=== PATIENT | female | born 1950 | race Caucasian/White ===

== ENCOUNTER 2019-12-04 08:29 | Outpatient (CLI) | payer MEDICARE, SELFPAY ==
--- NOTE | ~2019-12-04 | US_ITS ---
EXAMINATION: US right upper quadrant EXAM DATE: 12/04/2019 09:15 INDICATION: Right upper quadrant pain. TECHNIQUE: Multiple grayscale and Doppler images of the abdomen right upper quadrant were obtained (b y a technologist who performed the scan) and subsequently reviewed. There is no prior study for jose m porter. FINDINGS: The pancreatic head and body are normal in appearance. The pancreatic tail is not visualized. The l iver has normal echogenicity and contour. There are no focal liver lesions identified. There is no evidence of intrahepatic biliary duct dilation. Portal venous flow was seen in the hepatopedal, nor mal direction and has normal Doppler waveform. No right-sided hydronephrosis. Common bile duct measures 5 mm, which is normal. The gallbladder fossa is unremarkable. IMPRESSION: 1. Unremarkable abdominal ultrasound exam. Reviewed, dictated and finalized at location A. 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
== END 2019-12-04 08:30 | disposition home or self-care (01) ==
PROVIDERS: PCP Internal Medicine; Visit Provider Nurse Practitioner
DX: R10.11 Right upper quadrant pain (principal)
CPT/HCPCS: 76705

== ENCOUNTER 2019-12-13 09:07 | Outpatient (CLI) | payer MEDICARE, SELFPAY ==
--- NOTE | ~2019-12-13 | DEXA_ITS ---
Bone Density Report Name: Ro Echavarria Age: 69 Sex: Female Ethnicity: White Date of : 1950 Indication: postmenopausal; parental hip fracture; height loss; asthma or emphysema; hysterectomy; rheumatoid arthritis; Referring Provider: Casandra Reich Study: Bone densitometry was performed. Exam Date: December 13, 2019 Accession number: [id number] Bone Density: Region BMD T-score Z-score Classification AP Spine (L1-L4) 0.891 -1.4 0.7 Osteopenia Femoral Neck (Left) 0.566 -2.5 -0.8 Osteoporosis Total Hip (Left) 0.739 -1.7 -0.2 Osteopenia Total Hip Bilateral Avg 0.760 -1.5 0.0 Osteopenia Femoral Neck (Right) 0.560 -2.6 -0.8 Osteoporosis Total Hip (Right) 0.779 -1.3 0.2 Osteopenia World Health Organization criteria for BMD impression classify patients as: Normal (T-score at or above -1.0), Osteopenia (T-score between -1.0 and -2.5), or Osteoporosis (T-score at or below -2.5). 10-year Fracture Risk: FRAX not reported because: Some T-score for Spine Total or Hip Total or Femoral Neck at or below -2.5 Clinical Information Provided by Patient: Parent has had a hip fracture Smokes Has rheumatoid arthritis Has the following medical conditions: Asthma or Emphysema, Hysterectomy Patient maximum height was 64 Menopause Age: 25 No regular weight bearing exercise Does not regularly consume dairy products Drinks caffeinated beverages Onset of menses at age 12 Number of children 4 Impression: The patient has osteoporosis, based on the Right Femoral Neck T-score. The patient has risk factors, including: parental hip fracture, smoking. Discussion: INCREASED RISK OF FRACTURE. BONE DENSITY IS UNDESIRABLY LOW AT ONE OR MORE SKELETAL SITES, CONSISTENT WITH POSTMENOPAUSAL OSTEOPOROSIS. This patient's lowest T-score meets the World Health Organization's (WHO) criteria for osteoporosis at one or more sites (T-score -2.5 or below). In untreated patients, the risk of osteoporotic fracture increases approximately two-fold for each 1.0 SD decrease in T-score. Low bone density is not the only risk factor for fracture; also consider factors such as patient's age, frailty or poor health, risk of falling, risk of injury, previous osteoporotic fracture, family history of osteoporosis, cigarette smoking, low body weight, etc. Not everyone with low bone mineral density has osteoporosis; osteomalacia and other metabolic bone disorders should also be considered. Patients who have osteoporosis should be evaluated for specific diseases and conditions (secondary causes) that may cause or contribute to bone loss. The [place] [employer] Endocrinologists (AACE) and National Osteoporosis Foundation (NOF) recommend pharmacologic intervention for all postmenopausal women whose T-score is in this range. The patient should follow a healthful
--- NOTE | ~2019-12-13 | MM_ITS ---
EXAMINATION: MM screening dandre BI w alisha HISTORY: Screening mammogram TECHNIQUE: Craniocaudal and mediolateral oblique 3-D tomosynthesis images were obtained and synthetic 2-D images were generated. CAD analysis was submitted and interpreted. COMPARISON: 04/03/2014 BREAST PARENCHYMAL COMPOSITION: There are scattered areas of fibroglandular density. FINDINGS: There is no evidence of suspicious mass, calcification, or architectural distortion to sugg est malignancy in either breast. There has been no suspicious interval change. IMPRESSION: 1. No mammographic evidence of malignancy. 2. Recommend routine screening mammography in one year. BI-RADS Category 1: Negative Reviewed, dictated and finalized at location A. 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
== END 2019-12-13 09:08 | disposition home or self-care (01) ==
PROVIDERS: PCP Internal Medicine; Visit Provider Nurse Practitioner
DX: Z12.31 Encounter for screening mammogram for malignant neoplasm of breast (principal); Z78.0 Asymptomatic menopausal state; M85.89 Other specified disorders of bone density and structure, multiple sites; M81.0 Age-related osteoporosis without current pathological fracture
CPT/HCPCS: 77063; 77067; 77080

== ENCOUNTER 2020-03-22 00:33 | Outpatient (CLI) | payer MEDICARE, SELFPAY ==
[2020-03-22 16:40] LABS: SARS-CoV-2 RNA PCR Negative
== END 2020-03-22 00:34 | disposition home or self-care (01) ==
LOC: ANHCOVIDDT 00:33
PROVIDERS: PCP Internal Medicine; Visit Provider Internal Medicine Gastroenterology
DX: Z01.812 Encounter for preprocedural laboratory examination (principal); Z20.828 Contact with and (suspected) exposure to other viral communicable diseases
CPT/HCPCS: 87635; C9803; U0003

== ENCOUNTER 2020-03-24 03:31 | Day surgery (SDC) | payer MEDICARE, SELFPAY ==
[2020-03-21 15:49] VITALS: BMI 26.4
[2020-03-24 07:30] VITALS: BP 139/53; PULSE 100; RESP 18; TEMP 36.3; O2SAT 94; BMI 29.2
[2020-03-24 07:56] LABS: Glucose Point of Care 114 (65-105)
--- NOTE | 2020-03-24 07:58 | PM.HPGS ---
History of Present Illness History of Present Illness Consent: Risks, benefits, and alternatives have been discussed and questions answered. Patient agrees to proceed with procedure. Chief complaint: Dysphagia Narrative: Ro Echavarria is a 70 year old W female referred for gastroscopy for evaluation of heartburn indigestion and difficulty swallowing liquids and solids she points to the cervical region. She states that time she will have difficulty swallowing her saliva. Patient was evaluated for this 4 years ago in [place] with an EGD and also had a colonoscopy at that time. I do not have the reports. Patient states they found a hiatal hernia. Patient is a chronic smoker at least a 50 year pack history. Denies alcohol. She states she has not been evaluated by ENT. Patient has lost 50 lb but this had been attributed to her new diagnosis of diabetes. [facility] Past Medical History Medical History Asthma Bronchitis Chronic back pain COPD (chronic obstructive pulmonary disease) Depression Diabetes Diverticulitis Emphysema of lung Fibromyalgia H/O seasonal allergies Herniated disc HTN (hypertension) Hypercholesterolemia Left carpal tunnel syndrome Migraine On home O2 3L Pain in left wrist Rheumatoid arthritis Right carpal tunnel syndrome Skin disorder Surgical History Surgical History History of appendectomy History of cervical spinal arthrodesis History of cholecystectomy History of hysterectomy Hx of breast reduction, elective Bilateral Family History Family History Sibling Family history of Alzheimer's disease Hypertension Mother Family history of osteoarthritis Father Family history of coronary artery disease Sibling Kidney disease Other Family history of cardiovascular disease Social History Social History Smoking packs per day: 0.5 Smoking cigarettes per day: 10.0 Smoking status: Current every day smoker Smoking end date: 10/17/13 Alcohol intake: never Gender identity (if verbalized by the patient): Female Meds Home Medications and Allergies Home Medications Medication Instructions Recorded Confirmed Type blood-glucose meter #1 each 09/28/19 03/24/20 Rx albuterol sulfate 2.5 mg INHALATION Q4-6H PRN 11/20/19 03/24/20 History albuterol sulfate 90 mcg/actuation 2 puff INHALATION Q4-6H PRN gm 11/20/19 03/24/20 History aerosol inhaler pen needle, diabetic 32 gauge x #100 each 12/18/19 03/24/20 Rx 5/32 alendronate 70 mg tablet 70 mg PO WEEKLY #12 tablet 12/20/19 03/24/20 Rx blood sugar diagnostic #100 each 01/11/20 03/24/20 Rx lisinopril 10 mg tablet 10 mg PO DAILY #90 tablet 02/21/20 03/24/20 Rx cholecalciferol (vitamin D3) 1,250 1,250 mcg PO WEEKLY #8 tablet 03/04/20 03/24/20 Rx mcg (50,000 unit) tablet cholecalciferol (vitamin D3) 50 50 mcg PO DAILY #90 cap 03/04/20 03/24/20 Rx mcg (2,000 unit) capsule fluticasone propionate 50 2 spray NASAL DAILY #11.1 ml 03/04/20 03/24/20 Rx mcg/actuation nasal spray,suspension atorvastatin 10 mg tablet 10 mg PO DAILY #90 tablet 03/17/20 03/24/20 Rx tiotropium bromide 2.5 2 puff INHALATION DAILY #4 gm 03/17/20 03/24/20 Rx mcg/actuation mist for inhalation metformin 1,000 mg tablet 1,000 mg PO BID #180 tablet 03/18/20 03/24/20 Rx venlafaxine 150 mg 150 mg PO DAILY #90 cap 03/18/20 03/24/20 Rx capsule,extended release 24 hr Allergies Allergy/AdvReac Type Severity Reaction Status Date / Time No Known Allergies Allergy Verified 03/24/20 07:38 Vital Signs Vital Signs - 24 hr 03/24/20 07:30 Temperature 36.3 C L Pulse Rate 100 Respiratory Rate 18 Blood Pressure 139/53 L Pulse Oximetry 94 Exam Const: Orientation/consciousness: patient oriented x3 Resp: A
[2020-03-24] MEDS: LACTATED RINGERS 1,000 ML 150 ML IV CONT (08:08)
--- NOTE | 2020-03-24 08:22 | WPDANESEPPF ---
Anes - Initial Pre Proc Eval Procedure: Operation Date: 03/24/20 09:00 Proposed Procedures p Esophagogastroduodenoscopy - Shahram Scott MD Date/Time: 03/24/20 08:22 Surgeon: Sahhram Scott MD Pre Op Diagnosis: Dysphagia Patient Data Age: 70 Gender: F Height: 5 ft 3 in Weight: 75 kg Last Vital Signs Temp 97.4 F L 03/24/20 07:30 Pulse 100 03/24/20 07:30 Resp 18 03/24/20 07:30 BP 139/53 L 03/24/20 07:30 Pulse Ox 94 03/24/20 07:30 Allergies Allergy/AdvReac Type Severity Reaction Status Date / Time No Known Allergies Allergy Verified 03/24/20 07:38 Home Medications Medication Instructions Recorded Confirmed Type blood-glucose meter #1 each 09/28/19 03/24/20 Rx albuterol sulfate 2.5 mg INHALATION Q4-6H PRN 11/20/19 03/24/20 History albuterol sulfate 90 mcg/actuation 2 puff INHALATION Q4-6H PRN gm 11/20/19 03/24/20 History aerosol inhaler pen needle, diabetic 32 gauge x #100 each 12/18/19 03/24/20 Rx / alendronate 70 mg tablet 70 mg PO WEEKLY #12 tablet 12/20/19 03/24/20 Rx blood sugar diagnostic #100 each 01/11/20 03/24/20 Rx lisinopril 10 mg tablet 10 mg PO DAILY #90 tablet 02/21/20 03/24/20 Rx cholecalciferol (vitamin D3) 1,250 1,250 mcg PO WEEKLY #8 tablet 03/04/20 03/24/20 Rx mcg (50,000 unit) tablet cholecalciferol (vitamin D3) 50 50 mcg PO DAILY #90 cap 03/04/20 03/24/20 Rx mcg (2,000 unit) capsule fluticasone propionate 50 2 spray NASAL DAILY #11.1 ml 03/04/20 03/24/20 Rx mcg/actuation nasal spray,suspension atorvastatin 10 mg tablet 10 mg PO DAILY #90 tablet 03/17/20 03/24/20 Rx tiotropium bromide 2.5 2 puff INHALATION DAILY #4 gm 03/17/20 03/24/20 Rx mcg/actuation mist for inhalation metformin 1,000 mg tablet 1,000 mg PO BID #180 tablet 03/18/20 03/24/20 Rx venlafaxine 150 mg 150 mg PO DAILY #90 cap 03/18/20 03/24/20 Rx capsule,extended release 24 hr Laboratory Tests 03/24/20 07:55 POC Capillary Glucose 114 mg/dl H mg/dl (65-105) Patient hx anesthesia problems: none Family hx anesthesia problems: none PMFSH Past Medical History Medical History Asthma Bronchitis Chronic back pain COPD (chronic obstructive pulmonary disease) Depression Diabetes Diverticulitis Emphysema of lung Fibromyalgia H/O seasonal allergies Herniated disc HTN (hypertension) Hypercholesterolemia Left carpal tunnel syndrome Migraine On home O2 3L Pain in left wrist Rheumatoid arthritis Right carpal tunnel syndrome Skin disorder Surgical History Surgical History History of appendectomy History of cervical spinal arthrodesis History of cholecystectomy History of hysterectomy Hx of breast reduction, elective Bilateral Family History Family History Sibling Family history of Alzheimer's disease Hypertension Mother Family history of osteoarthritis Father Family history of coronary artery disease Sibling Kidney disease Other Family history of cardiovascular disease Social History Social History Smoking packs per day: 0.5 Smoking cigarettes per day: 10.0 Smoking status: Current every day smoker Smoking end date: 10/17/13 Alcohol intake: never Gender identity (if verbalized by the patient): Female Anes - Eval Final PreProcedure Day of Procedure 03/24/20 08:22 Patient weight: overweight Heart: regular rate and rhythm Lungs: clear to auscultation Airway: Mallampati scale class II Neurological: alert and oriented Last oral intake: >/= 8 hours ASA classification: III Emergent: no Anesthetic plan: proceed Anesthesia type and monitoring: general GIVS and standard monitoring Informed Consent: The patient's anesthetic plan and its attendant risks and benefits were discus
--- NOTE | 2020-03-24 09:16 | SUR.OPER ---
0916 CALLED DAUGHTER WITH UPDATE VIA PHONE. SANTANA NASH
[2020-03-24 09:40] VITALS: BP 114/49; PULSE 84; RESP 17; O2SAT 99
[2020-03-24 09:50] VITALS: BP 108/44; PULSE 83; RESP 18; O2SAT 98
[2020-03-24 09:56] VITALS: BP 128/62; PULSE 79; RESP 23; O2SAT 96
== END 2020-03-24 10:12 | disposition home or self-care (01) ==
PROVIDERS: PCP Internal Medicine; Visit Provider Internal Medicine Gastroenterology
PROC: 0DJ08ZZ Inspection of Upper Intestinal Tract, Via Natural or Artificial Opening Endoscopic (ICD-10-PCS; CPT 43235; principal; 2020-03-24 09:00)
DX: R13.12 Dysphagia, oropharyngeal phase (principal); K29.50 Unspecified chronic gastritis without bleeding; K20.8 Other esophagitis; I10 Essential (primary) hypertension; E78.00 Pure hypercholesterolemia, unspecified; E11.9 Type 2 diabetes mellitus without complications; M06.9 Rheumatoid arthritis, unspecified; J44.9 Chronic obstructive pulmonary disease, unspecified; F32.9 Major depressive disorder, single episode, unspecified; M79.7 Fibromyalgia; Z99.81 Dependence on supplemental oxygen; Z79.84 Long term (current) use of oral hypoglycemic drugs; F17.210 Nicotine dependence, cigarettes, uncomplicated
CPT/HCPCS: 43239; 87081; 88305; J2704; J7120

== ENCOUNTER 2020-04-13 17:51 | Emergency (ER) | payer MEDICARE, SELFPAY ==
[2020-04-13] VITALS (19 sets, daily range): BP systolic 125–159; BP diastolic 46–73; PULSE 88–99; RESP 13–24; TEMP 36.6; O2SAT 90–95
--- NOTE | ~2020-04-13 | XR_ITS ---
EXAMINATION: XR chest 2V DATE: 04/13/2020 20:35 INDICATION: Left-sided chest pain TECHNIQUE: AP and lateral views of the chest are obtained. COMPARISON: 09/21/2019 FINDINGS: The lungs are free of acute opacities. There is no pleural effusion or pneumothorax. The ca rdiomediastinal silhouette is normal. There is moderate thoracic spondylosis. Cholecystectomy clips a re noted in the right upper quadrant. IMPRESSION: 1. No acute cardiopulmonary abnormality. Reviewed, dictated and finalized at location A.
--- NOTE | ~2020-04-13 | CT_ITS ---
EXAMINATION: CT brain wo con INDICATION: Dizziness COMPARISON: None TECHNIQUE: Standard unenhanced head CT. The dose-length product (DLP) was 605.33 mGy-cm. The mA was a djusted according to patient size. Iterative reconstruction technique was employed. FINDINGS: There is no acute intraparenchymal hemorrhage. No evidence of mass lesion. No evidence of a cute infarction. There is mild periventricular and subcortical hypodensity probably related to small vessel ischemic disease. There is mild prominence of the sulci and ventricles related to cerebral atr ophy. Intracranial calcified cerebral atherosclerosis is noted. There are no extra-axial collections. There is no mass effect or midline shift. Changes in the globes are likely from ocular lens surgery. The visualized sinuses and mastoid air cells are well aerated. IMPRESSION: 1. No acute intracranial abnormality. 2. Age related findings. Reviewed, dictated and finalized at location A.
--- NOTE | 2020-04-13 18:14 | ED.GENADULT ---
HPI - General Adult General Chief complaint: Dizziness Stated complaint: Dizziness, nausea Time Seen by Provider: 04/13/20 18:12 Source: patient, family and EMS Mode of arrival: EMS Limitations: no limitations History of Present Illness HPI narrative: Patient is a 70-year-old female who presents for evaluation of dizziness. Patient states the dizziness started approximately 2 hours ago, it initially occurred when the patient went from laying on her couch to standing up suddenly. Patient states she felt as if the room was spinning and that she may pass out. Patient was able to make it to a phone to call her family who called EMS. At the time of EMS arrival, patient still felt very dizzy, but states that her symptoms are only severe for about 10 or 15 minutes. Patient was transported to our facility, given Zofran in route and states that she felt much improved following this. Patient denies shortness of breath, or palpitations prior to the dizziness. Patient does state that she experienced some dull, left-sided chest pain for a very short period of time with the dizziness. No nausea, vomiting, jaw, arm or shoulder pain. No current chest pain in the ER. Patient states that her dizziness has improved since laying still. She does not feel dizzy when she is not moving. Related Data Home Medications Medication Instructions Recorded Confirmed albuterol sulfate 2.5 mg INHALATION Q4-6H PRN 11/20/19 03/24/20 tiotropium bromide [Spiriva 2 puff INHALATION DAILY 04/13/20 Respimat] Allergies Allergy/AdvReac Type Severity Reaction Status Date / Time No Known Allergies Allergy Verified 04/13/20 18:05 Review of Systems Review of Systems: Narrative: CONSTITUTIONAL: Denies fever, chills, or sweats. EYES: Denies visual changes ENT: Denies rhinorrhea, congestion, sore throat, or otalgia. CARDIOVASCULAR: Chest pain, now resolved, denies palpitations or edema RESPIRATORY: Denies cough or dyspnea. GASTROINTESTINAL: Denies abdominal pain, reports nausea and dry heaving, denies diarrhea GENITOURINARY: Denies dysuria or hematuria. SKIN: Denies rash or itching. MUSCULOSKELETAL: Denies back pain, joint pain, or myalgia. NEUROLOGIC: Denies headache, numbness, or weakness. Reports dizziness. [facility] Past Medical History Medical History Asthma Bronchitis Chronic back pain COPD (chronic obstructive pulmonary disease) Depression Diabetes Diverticulitis Emphysema of lung Fibromyalgia H/O seasonal allergies Herniated disc HTN (hypertension) Hypercholesterolemia Left carpal tunnel syndrome Migraine On home O2 3L Pain in left wrist Rheumatoid arthritis Right carpal tunnel syndrome Skin disorder Surgical History Surgical History History of appendectomy History of cervical spinal arthrodesis History of cholecystectomy History of hysterectomy Hx of breast reduction, elective Bilateral Family History Family History Sibling Family history of Alzheimer's disease Hypertension Mother Family history of osteoarthritis Father Family history of coronary artery disease Sibling Kidney disease Other Family history of cardiovascular disease Social History Social History Smoking packs per day: 0.5 Smoking cigarettes per day: 10.0 Smoking status: Current every day smoker Smoking end date: 10/17/13 Alcohol intake: never Gender identity (if verbalized by the patient): Female Exam Narrative: Exam Narrative: GENERAL: Awake, alert, conversant HEAD: Normocephalic, atraumatic. EYES: PERRLA and EOMI. ENT: Nares clear, no rhinorrhea or epistaxis. Mucous membranes moist. NECK: Supple. CHEST: No respiratory distress, breathing even and non labored HEART: Regular rate, sinus rhythm ABDOMEN:Non distended,
--- NOTE | 2020-04-13 18:15 | ECG_ITS ---
Measurements Intervals [place] Rate: 91 P: 83 MS: 156 QRS: 44 QRSD: 80 T: 77 QT: 351 QTc: 432 Interpretive Statements SINUS RHYTHM BORDERLINE R WAVE PROGRESSION, ANTERIOR LEADS MINIMAL Q WAVES- INFERIOR LEADS BASELINE ARTIFACT- V5 BORDERLINE ECG Electronically Signed On 04-14-2020 7:03:40 CDT by Tyson Aguirre D.O.
[2020-04-13] MEDS: ASPIRIN 81 MG CHEWABLE TABLET 324 MG PO (18:56)
[2020-04-13] MEDS: SODIUM CHLORIDE 0.9% IV 1,000 ML 999 ML IV CONT (18:58)
[2020-04-13] MEDS: ONDANSETRON INJ 4 MG/2 ML VIAL IV PUSH (18:59)
[2020-04-13 19:30] LABS: Basophils Absolute Auto 0.1 K/mm3 (0.0-0.1); Basophils Percent Auto 0.5 % (0.2-1.2); Eosinophils Absolute Auto 0.2 K/mm3 (0-0.3); Eosinophils Percent Auto 1.7 % (0-4.4); Hematocrit 44.3 % (37.0-47.0); Hemoglobin 14.4 g/dL (12.0-15.0); Immature Granulocyte Absolute 0.04 K/mm3 (0.00-0.031); Immature Granulocyte Percent A 0.4 % (0-0.5); Lymphocytes Absolute Auto 2.15 K/mm3 (0.9-3.2); Mean Corpuscular HGB Conc 32.5 g/dl (32-36); Mean Corpuscular Hemoglobin 27.2 pg (26-34); Mean Corpuscular Volume 83.7 fl (80-100); Mean Platelet Volume 9.5 fl (7.4-10.4); Monocytes Absolute Auto 0.5 K/mm3 (0.1-0.6); Neutrophils Absolute Auto 6.9 K/mm3 (1.3-6.7); Neutrophils Percent Auto 70.4 % (45.5-73.1); Platelet Count Result 290 k/mm3 (150-375); Red Blood Count 5.29 M/mm3 (4.2-5.4); Red Cell Distribution Width 13.2 % (11.5-14.5); White Blood Count 9.8 K/mm3 (4.5-10.0)
[2020-04-13 19:33] LABS: Partial Thromboplastin Time 26.8 SECONDS (22.3-36.8); Prothrombin Time 12.8 Seconds (11.1-14.7)
[2020-04-13 19:39] LABS: Alanine Aminotransferase 31 U/L (4-35); Albumin Level 4.3 g/dL (3.5-5.1); Alkaline Phosphatase 99 U/L (38-126); Aspartate Amino Transferase 39 U/L (14-36); Bilirubin,Total 0.3 mg/dL (0.2-1.3); Blood Urea Nitrogen 11 mg/dL (7-17); Calcium 8.9 mg/dL (8.4-10.2); Carbon Dioxide 27 mmol/L (22-30); Chloride 101 mmol/L (98-107); Estimated CRCL calculation 72 ml/min; Estimated Glomerular Filt Rate > 60; Glucose 105 mg/dL (65-105); Lipase 60 U/L (23-300); Potassium 4.3 mmol/L (3.4-5.0); Sodium 136 mmol/L (137-145)
[2020-04-13 19:49] LABS: Troponin I < 0.012 ng/mL (0.000-0.034)
[2020-04-13 20:24] LABS: Add Urine Microscopic? NO; Appearance Urine Clear (Clear); Bilirubin Urine Negative (Negative); Blood Urine Negative (Negative); Color Urine Yellow (Yellow); Glucose Urine UA Negative (Negative); Ketones Urine Negative (Negative); Leukocyte Esterase Ur Negative LEU/UL (Negative); Nitrate Urine Negative (Negative); Protein Urine Negative (Negative); Specific Grav Ur 1.012 (1.001-1.035); Urobilinogen Urine Negative mg/dL (<2.0)
[2020-04-13 22:43] LABS: Troponin I < 0.012 ng/mL (0.000-0.034)
== END 2020-04-13 23:30 | disposition home or self-care (01) ==
PROVIDERS: Emergency Provider Emergency Medicine; PCP Internal Medicine
DX: R42 Dizziness and giddiness (principal); E11.9 Type 2 diabetes mellitus without complications; J43.9 Emphysema, unspecified; I10 Essential (primary) hypertension; M79.7 Fibromyalgia; Z99.81 Dependence on supplemental oxygen; E78.00 Pure hypercholesterolemia, unspecified; M06.9 Rheumatoid arthritis, unspecified; Z98.1 Arthrodesis status; R94.31 Abnormal electrocardiogram [ECG] [EKG]; Z79.84 Long term (current) use of oral hypoglycemic drugs; F17.210 Nicotine dependence, cigarettes, uncomplicated; R07.9 Chest pain, unspecified
CPT/HCPCS: 36415; 70450; 71046; 80053; 81003; 83690; 84484; 85025; 85610; 85730; 93005; 96361; 96374; 99284; A9270; J2405; J7030

== ENCOUNTER 2020-11-24 09:19 | Outpatient (CLI) | payer MEDICARE, MEDICAID, SELFPAY ==
--- NOTE | ~2020-11-24 | CT_ITS ---
EXAMINATION: CT abdomen pelvis wo con DATE: 11/24/2020 09:40 INDICATION: Right upper quadrant pain TECHNIQUE: Computed tomography (CT) of the abdomen and pelvis was performed without intravenous contr ast. The dose-length product (DLP) was 810.78 mGy-cm. Automated exposure control and iterative recons truction technique were employed. COMPARISON: 03/12/2014 FINDINGS: The lung bases are clear. The heart size is normal. Mild emphysema is noted in the visualiz ed lung bases. The gallbladder is surgically absent. There is nodularity of the liver surface. Puncta te calcifications in an otherwise normal spleen likely represent healed granulomatous disease. The ri ght adrenal gland is normal. There is an unchanged 12 mm adenoma of the left adrenal gland. The left kidney is unremarkable. There is a 12 mm cyst of the right kidney. There is calcified atherosclerosis of the aorta and many of the other arteries. Colonic diverticulosis is present without evidence of d iverticulitis. No pathologically enlarged abdominal or pelvic lymph nodes are identified. There is no free intraperitoneal gas or evidence of bowel obstruction. There is mild lumbar spondylosis. IMPRESSION: 1. No CT correlate for the patient's symptoms. 2. Cirrhosis. 3. Diverticulosis without evidence of diverticulitis. Reviewed, dictated and finalized at location A. 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
--- NOTE | ~2020-11-24 | CT_ITS ---
EXAMINATION: CT lung screening DATE: 11/24/2020 09:40 INDICATION: Personal history of tobacco dependence. Lung cancer screening. TECHNIQUE: Computed tomography (CT) of the chest was performed without intravenous contrast. The dose -length product was 118.05 mGy-cm. Automated exposure control and iterative reconstruction technique were employed. COMPARISON: CT dated 08/24/2019 FINDINGS: Heart size is normal. There is atherosclerosis of the aorta. Heart size normal. No signific ant pleural or pericardial effusion. There is a 3 mm right upper lobe nodule right upper lobe, image 28. There is a calcified granuloma right upper lobe calcified granuloma left upper lobe. 4 mm left up per lobe nodule, image 28, new. Mild emphysema. 2 mm right upper lobe nodule, image 28. No focal airs pace consolidation. No pneumothorax. Mild thoracic spondylosis. IMPRESSION: 1. Lung-RADS category 3: Probably benign. Further evaluation is recommended with noncontrast low-dose chest CT in 6 months. Reviewed, dictated and finalized at location B. 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 Lung-RADS category 3: Probably benign. Further evaluation is recommended wit h noncontrast low-dose chest CT in 6 months.
== END 2020-11-24 09:20 ==
PROVIDERS: PCP Internal Medicine; Visit Provider Nurse Practitioner
DX: Z12.2 Encounter for screening for malignant neoplasm of respiratory organs (principal); Z87.891 Personal history of nicotine dependence; R10.11 Right upper quadrant pain
CPT/HCPCS: 71271; 74176

== ENCOUNTER 2021-05-18 10:51 | Outpatient (CLI) | payer MEDICARE, SELFPAY ==
--- NOTE | ~2021-05-18 | CT_ITS ---
EXAMINATION:CT diagnostic chest wo con DATE: 05/18/2021 11:09 INDICATION: Solitary pulmonary nodule. TECHNIQUE: Computed tomography (CT) of the chest was performed without intravenous contrast. Automate d exposure control and iterative reconstruction technique were employed. The dose-length product (DLP ) was 126.98 mGy-cm. COMPARISON: Chest CT 11/24/2020 FINDINGS: There is stable mild scarring at the lung apices. There is mild emphysema. Calcified pulmon rick nodules and calcified left hilar lymph nodes are consistent with old granulomatous disease. No pl eural effusion. The heart size is normal. There are coronary artery calcifications. There are calcifi cations of the aortic valve. No pericardial effusion. The liver demonstrates surface nodularity, cons istent with cirrhosis. There is moderate thoracic spondylosis. IMPRESSION: 1. Lung-RADS category 2: Benign appearance or behavior. Continue annual screening with noncontrast lo w-dose chest CT in 12 months. 2. Cirrhosis of the liver. Reviewed, dictated and finalized at location A. IMPRESSION: 1. Lung-RADS category 2: Benign appearance or behavior. Continue annual screeni ng with noncontrast low-dose chest CT in 12 months. 2. Cirrhosis of the liver.
== END 2021-05-18 10:52 ==
PROVIDERS: PCP Internal Medicine; Visit Provider Nurse Practitioner
DX: R91.1 Solitary pulmonary nodule (principal); K74.69 Other cirrhosis of liver
CPT/HCPCS: 71250

== ENCOUNTER 2021-06-14 14:21 | Emergency (ER) | payer MEDICARE, SELFPAY ==
[2021-06-14] VITALS (7 sets, daily range): BP systolic 107–143; BP diastolic 50–70; PULSE 90–106; RESP 13–22; TEMP 36.3; O2SAT 91–94
--- NOTE | 2021-06-14 | ECG_ITS ---
Measurements Intervals [place] Rate: 92 P: 84 IA: 166 QRS: 82 QRSD: 82 T: 78 QT: 347 QTc: 431 Interpretive Statements SINUS RHYTHM POOR R WAVE PROGRESSION, ANTERIOR LEADS CONSIDER INFERIOR INFARCT, AGE INDETERMINATE BASELINE ARTIFACT- II, III, AVF ABNORMAL ECG Electronically Signed On 06-17-2021 11:19:44 CDT by Tyson Aguirre D.O.
--- NOTE | ~2021-06-14 | XR_ITS ---
EXAMINATION: XR shoulder RT min 2V, XR wrist RT 2V, XR humerus RT, XR forearm RT 2V DATE: 06/14/2021 14:45 INDICATION: Right arm pain post fall from chair TECHNIQUE: 1. AP internally and externally rotated, AP oblique externally rotated and transscapular Y views of t he right shoulder were obtained. 2. AP and lateral views of the right humerus were obtained. 3. AP and lateral views of the right forearm were obtained. 4. AP and lateral views of the right wrist were obtained. COMPARISON: None FINDINGS: Nondisplaced mildly comminuted proximal right humeral fracture with fracture plane extending across t he surgical neck and additional nondisplaced fracture plane extending cephalad across the base of the greater tuberosity. Alignment remains near-anatomic. No other fractures identified throughout the vi sualized right upper limb from the shoulder through the hand. Mild osteoarthritis at the right acromi oclavicular, elbow and multiple joints at the right wrist and carpus IMPRESSION: 1. Nondisplaced mildly comminuted 1 part fracture of the proximal right humerus. Line 2. Mild polyarticular osteoarthritis throughout the right upper limb from the shoulder through the hack[place] nd. Reviewed, dictated and finalized at location A. IMPRESSION: 1. Nondisplaced mildly comminuted 1 part fracture of the proximal right humerus . Line 2. Mild polyarticular osteoarthritis throughout the right upper limb from the s houlder through the hand. IMPRESSION: 1. Nondisplaced mildly comminuted 1 part fracture of the proximal right humerus . Line 2. Mild polyarticular osteoarthritis throughout the right upper limb from the s houlder through the hand. IMPRESSION: 1. Nondisplaced mildly comminuted 1 part fracture of the proximal right humerus . Line 2. Mild polyarticular osteoarthritis throughout the right upper limb from the s houlder through the hand.
--- NOTE | ~2021-06-14 | CT_ITS ---
EXAMINATION: CT brain wo con DATE: 06/14/2021 14:55 INDICATION: Generalized headache post fall TECHNIQUE: Computed tomography (CT) of the head was performed without intravenous contrast. Sagittal and coronal reconstructions were performed. The mA was adjusted according to patient size. Iterative reconstruction technique was employed. The dose-length product was 605.33 mGy-cm. COMPARISON: head CT dated 04/13/2020 FINDINGS: No fracture. No acute intracranial hemorrhage, acute infarction or abnormal extra axial fluid collect ion. There is moderate scattered white matter hypoattenuation consistent with chronic small vessel is chemic disease. Symmetric prominence of the sulci consistent with mild age-appropriate diffuse cerebr al volume loss. Ventricles are normal and symmetric. No mass/mass effect. Changes of bilateral intrao cular lens replacement. The orbits, paranasal sinuses and mastoid air cells are normal. IMPRESSION: 1. No fracture or acute intracranial process. 2. Age-related changes including mild diffuse volume loss and moderate scattered white matter hypoatt enuation consistent with chronic small vessel ischemic disease. Reviewed, dictated and finalized at location A. IMPRESSION: 1. No fracture or acute intracranial process. 2. Age-related changes including mild diffuse volume loss and moderate scattere d white matter hypoattenuation consistent with chronic small vessel ischemic di sease.
--- NOTE | ~2021-06-14 | CT_ITS ---
EXAMINATION: CT cervical spine wo con DATE: 06/14/2021 14:55 INDICATION: Fall. Head and neck injury. TECHNIQUE: Computed tomography (CT) of the cervical spine was performed without intravenous contrast. Automated exposure control and iterative reconstruction technique were employed. Exam dose: 492.42 mGy-cm total exam DLP. COMPARISON: None FINDINGS: C1 and C2 are normally aligned and the odontoid process is intact. There is fusion at the apophyseal joints on the right at C2-3. There is degenerative change at the re maining apophyseal joints bilaterally. There is anterior fusion at C4-5. There is severe degenerative disc disease with very prominent anterior and particularly posterior spu rring at C5-6. There is severe degenerative disc disease with prominent anterior posterior spurring a t C6-7. No fracture or dislocation or locked facet or prevertebral soft tissue swelling is detected.. IMPRESSION: Extensive degenerative changes; no fracture or dislocation, locked facet or prevertebral soft tissue swelling Reviewed, dictated and finalized at Location A. Reviewed, dictated and finalized at location A.
--- NOTE | 2021-06-14 14:27 | PC.NURSE ---
pt received Fentanyl en route with EMS. MD request to wait to administer morphine at this time
[2021-06-14 14:33] LABS: Basophils Absolute Auto 0.1 K/mm3 (0.0-0.1); Basophils Percent Auto 0.5 % (0.2-1.2); Eosinophils Absolute Auto 0.1 K/mm3 (0-0.3); Eosinophils Percent Auto 0.9 % (0-4.4); Hematocrit 47.6 % (37.0-47.0); Hemoglobin 15.4 g/dL (12.0-15.0); Immature Granulocyte Absolute 0.04 K/mm3 (0.00-0.031); Immature Granulocyte Percent A 0.3 % (0-0.5); Lymphocytes Absolute Auto 2.09 K/mm3 (0.9-3.2); Lymphocytes Percent Auto 16.1 % (18.3-44.2); Mean Corpuscular HGB Conc 32.4 g/dl (32-36); Mean Corpuscular Volume 83.5 fl (80-100); Mean Platelet Volume 9.1 fl (7.4-10.4); Monocytes Absolute Auto 0.6 K/mm3 (0.1-0.6); Monocytes Percent Auto 4.3 % (2.6-8.5); Neutrophils Absolute Auto 10.1 K/mm3 (1.3-6.7); Neutrophils Percent Auto 77.9 % (45.5-73.1); Platelet Count Result 306 k/mm3 (150-375); Red Cell Distribution Width 14.2 % (11.5-14.5)
[2021-06-14 14:43] LABS: Alanine Aminotransferase 25 U/L (4-35); Albumin Level 4.4 g/dL (3.5-5.1); Alkaline Phosphatase 111 U/L (38-126); Anion Gap 8 mmol/L (8-16); Aspartate Amino Transferase 30 U/L (14-36); Bilirubin,Total 0.5 mg/dL (0.2-1.3); Blood Urea Nitrogen 9 mg/dL (7-17); Calcium 9.3 mg/dL (8.4-10.2); Carbon Dioxide 26 mmol/L (22-30); Chloride 97 mmol/L (98-107); Estimated Glomerular Filt Rate > 60; Glucose 136 mg/dL (65-110); Potassium 3.9 mmol/L (3.4-5.0); Sodium 131 mmol/L (137-145)
--- NOTE | 2021-06-14 14:43 | PC.NURSE ---
Pt off floor to radiology
--- NOTE | 2021-06-14 14:57 | ED.FALL ---
HPI - Fall General Chief Complaint: Fall Stated Complaint: fall History of Present Illness HPI Narrative: Patient presents after a fall. She reports she was climbing up on a chair to put something where when she slipped and landed on her left chest. She may have pain in her arm and called an ambulance and brought her in for evaluation. She denies striking her head she denies any loss of consciousness. Reports her pain is in her left shoulder she denies any other focal areas of pain she denies any focal numbness or weakness. She denies prodrome prior to the fall such as chest pain, shortness of breath, dizziness. Related Data Home Medications Medication Instructions Recorded Confirmed albuterol sulfate 2.5 mg INHALATION Q4-6H PRN 11/20/19 05/14/21 cholecalciferol (vitamin D3) 50 50 mcg PO DAILY 05/20/20 05/14/21 mcg (2,000 unit) capsule Allergies Allergy/AdvReac Type Severity Reaction Status Date / Time No Known Allergies Allergy Verified 06/14/21 14:22 Review of Systems Review of Systems: CONSTITUTIONAL: Denies fever, chills, or sweats. EYES: Denies visual changes, redness, or discharge. ENT: Denies rhinorrhea, congestion, sore throat, or otalgia. CARDIOVASCULAR: Denies chest pain, palpitations, or edema. RESPIRATORY: Denies cough or dyspnea. GASTROINTESTINAL: Denies abdominal pain, nausea, vomiting, or diarrhea. GENITOURINARY: Denies dysuria or hematuria. SKIN: Denies rash or itching. MUSCULOSKELETAL: Denies back pain, or myalgia. NEUROLOGIC: Denies headache, numbness, dizziness, or weakness. PSYCHIATRIC: Denies anxiety or depression. All systems reviewed & are unremarkable except as noted in HPI and below [facility] Past Medical History Medical History Asthma Bronchitis Chronic back pain COPD (chronic obstructive pulmonary disease) Depression Diabetes Diverticulitis Emphysema of lung Fibromyalgia H/O seasonal allergies Herniated disc HTN (hypertension) Hypercholesterolemia Left carpal tunnel syndrome Migraine On home O2 3L Pain in left wrist Rheumatoid arthritis Right carpal tunnel syndrome Skin disorder Surgical History Surgical History History of appendectomy History of cervical spinal arthrodesis History of cholecystectomy History of hysterectomy Hx of breast reduction, elective Bilateral Family History Family History Sibling Family history of Alzheimer's disease Hypertension Mother Family history of osteoarthritis Father Family history of coronary artery disease Sibling Kidney disease Other Family history of cardiovascular disease Social History Social History Smoking packs per day: 0.5 Smoking cigarettes per day: 10.0 Smoking status: Current every day smoker Smoking end date: 10/17/13 Alcohol intake: never Gender identity (if verbalized by the patient): Female Exam Narrative: GENERAL: Well-appearing, well-nourished, and in no acute distress. HEAD: Normocephalic, atraumatic. EYES: PERRLA and EOMI. ENT: Nares clear, no rhinorrhea or epistaxis. Mucous membranes moist. NECK: Supple. No masses. No JVD CHEST: Clear to auscultation. No respiratory distress. No wheezes rales or rhonchi HEART: Regular rate and rhythm. No murmur heard. Normal peripheral pulses. ABDOMEN: Soft, nontender, nondistended, normal active bowel sounds. EXTREMITIES: Tenderness palpation and swelling noted on the proximal aspect of the right upper extremity. There is no obvious deformity. There is no tenderness on the elbow there is mild tenderness diffusely with palpation of the right wrist. Distal right upper extremity has good cap refill sensation and strength. SKIN: Warm, dry, no rash. NEURO: No focal deficits. Alert and oriented x3. PSYCH: Normal mood and affect.
[2021-06-14] MEDS: MORPHINE SULFATE (*CRX) 4 MG/ML INJ IV PUSH ×2 (15:05→16:50)
[2021-06-14] MEDS: ONDANSETRON INJ 4 MG/2 ML VIAL IV PUSH (15:12)
== END 2021-06-14 17:09 | disposition home or self-care (01) ==
PROVIDERS: Emergency Provider Emergency Medicine; PCP Internal Medicine
DX: S42.214A Unspecified nondisplaced fracture of surgical neck of right humerus, initial encounter for closed fracture (principal); S42.254A Nondisplaced fracture of greater tuberosity of right humerus, initial encounter for closed fracture; E11.9 Type 2 diabetes mellitus without complications; J43.9 Emphysema, unspecified; M79.7 Fibromyalgia; I10 Essential (primary) hypertension; E78.00 Pure hypercholesterolemia, unspecified; M06.9 Rheumatoid arthritis, unspecified; F32.9 Major depressive disorder, single episode, unspecified; Z99.81 Dependence on supplemental oxygen; Z98.1 Arthrodesis status; F17.210 Nicotine dependence, cigarettes, uncomplicated; M19.031 Primary osteoarthritis, right wrist; M19.021 Primary osteoarthritis, right elbow; M19.011 Primary osteoarthritis, right shoulder; R94.31 Abnormal electrocardiogram [ECG] [EKG]; W07.XXXA Fall from chair, initial encounter
CPT/HCPCS: 36415; 70450; 72125; 73030; 73060; 73090; 73100; 80053; 85025; 93005; 96374; 96375; 96376; 99284; J2270; J2405

== ENCOUNTER 2021-08-25 07:15 | Outpatient (CLI) | payer MEDICARE, SELFPAY ==
--- NOTE | ~2021-08-25 | CT_ITS ---
EXAMINATION: CT diagnostic chest wo con DATE: 08/25/2021 08:04 INDICATION: Solitary pulmonary nodule TECHNIQUE: Computed tomography (CT) of the chest was performed without intravenous contrast. The dose -length product (DLP) was 153.85 mGy-cm. Automated exposure control and iterative reconstruction tech nique were employed. COMPARISON: 05/18/2021 FINDINGS: There is mild emphysema. The lungs are free of acute opacities. There is no pleural effusio n or pneumothorax. Calcified pulmonary nodules and calcified left hilar lymph nodes are consistent wi th old granulomatous disease. No pathologically enlarged thoracic lymph nodes are identified. The hea rt size is normal. Calcified coronary artery atherosclerosis is noted. There is nodularity of the manas er surface. The gallbladder is surgically absent. There is moderate thoracic spondylosis. IMPRESSION: 1. No suspicious pulmonary nodules identified. 2. Cirrhosis. Reviewed, dictated and finalized at location B. 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
== END 2021-08-25 07:16 | disposition home or self-care (01) ==
PROVIDERS: PCP Internal Medicine; Visit Provider Nurse Practitioner
DX: K74.69 Other cirrhosis of liver (principal)
CPT/HCPCS: 71250

== ENCOUNTER 2022-03-26 10:22 | Inpatient (IN) | payer MEDICARE, SELFPAY ==
[2022-03-26] VITALS (11 sets, daily range): BP systolic 122–165; BP diastolic 58–73; PULSE 84–100; RESP 16–25; TEMP 37.2–37.8; O2SAT 94–99; BMI 31.4
--- NOTE | ~2022-03-26 | CT_ITS ---
EXAMINATION: CT abdomen pelvis wo con DATE: 03/26/2022 11:45 INDICATION: Right upper quadrant abdominal pain. TECHNIQUE: Computed tomography (CT) of the abdomen and pelvis was performed without intravenous contr ast. Automated exposure control and iterative reconstruction technique were employed. The dose-length product was 474.39 mGy-cm. COMPARISON: CT abdomen and pelvis 11/24/2020 FINDINGS: The visualized portions of the lung bases demonstrate mild atelectasis. No pleural effusion . The heart size is normal. No pericardial effusion. The liver demonstrates surface nodularity, consi stent with cirrhosis. There are changes of cholecystectomy. Calcifications in the spleen are consiste nt with old granulomatous disease. There is fat stranding around the head of the pancreas, consistent with acute pancreatitis. The adrenal glands and kidneys are normal. There is no urolithiasis. There is diverticulosis of the colon without evidence of diverticulitis. There are no dilated loops of alban l. The appendix is not visualized. There are no pathologically enlarged lymph nodes. There is no free intraperitoneal fluid. There is osteonecrosis in the femoral heads bilaterally. There is mild thorac olumbar spondylosis. IMPRESSION: 1. Acute interstitial pancreatitis. 2. Cirrhosis of the liver. Reviewed, dictated and finalized at location A.
--- NOTE | ~2022-03-26 | CT_ITS ---
EXAMINATION: CT brain wo con DATE: 03/27/2022 19:09 INDICATION: fall . TECHNIQUE: Computed tomography (CT) of the head was performed without intravenous contrast. The mA wa s adjusted according to patient size. Iterative reconstruction technique was employed. The dose-lengt h product was 605.33 mGy-cm. COMPARISON: None FINDINGS: No acute intracranial hemorrhage or extra-axial fluid collection. No hydrocephalus, mass, or herniation. No acute ischemic infarct. Unremarkable dural venous sinus attenuation. No acute osseous abnormality. Small retention cyst or polyp in the right posterior ethmoid cells, otherwise the aerated spaces are clear. Mild atrophy. Moderate chronic white matter change. Atherosclerotic intracranial calcifications. IMPRESSION: No acute intracranial process. Reviewed, dictated and finalized at location K.
--- NOTE | ~2022-03-26 | XR_ITS ---
EXAMINATION: XR chest 1V portable 03/26/2022 11:20 INDICATION: Wheezing PROCEDURE: AP portable chest COMPARISON: Comparison to multiple prior studies sequentially, with oldest reviewed study dated 08/17. FINDINGS: The lungs are clear. The cardiomediastinal silhouette is within normal limits. There are no pleural effusions. There is no pneumothorax suspected. IMPRESSION: 1: NO ACUTE CARDIOPULMONARY DISEASE. Reviewed, dictated and finalized at location B.
--- NOTE | ~2022-03-26 | CT_ITS ---
EXAMINATION: CT cervical spine wo con DATE: 03/27/2022 19:09 INDICATION: fall TECHNIQUE: Computed tomography (CT) of the cervical spine was performed without intravenous contrast. Automated exposure control and iterative reconstruction technique were employed. The dose-length pro duct was 465.51 mGy-cm. COMPARISON: 06/14/2021. FINDINGS: Counting reference: Craniocervical junction. There are seven cervical type vertebral bodies. Anatomic Variants: None. Vertebral Body Alignment: Intact. Craniocervical junction: Moderate degenerative change. Alignment intact. Osseous structures/fracture: No evidence of a lytic or blastic process in the visualized spine. N o evidence of acute fracture. Cervical soft tissues: The paraspinal soft tissues planes are maintained. Degenerative changes: Right C2-C3 facet fusion. C4-5 vertebral body fusion. Multilevel severe degener ative disc disease. Multilevel severe facet hypertrophy. Multilevel bilateral severe neural foraminal narrowing. Prominent right C5-6 uncovertebral joint osteophyte causes moderate right paracentral can al stenosis. IMPRESSION: No acute fracture or traumatic malalignment in the cervical spine. Reviewed, dictated and finalized at location K.
[2022-03-26] MEDS: ONDANSETRON INJ 4 MG/2 ML VIAL IV PUSH ×2 (10:55→15:40)
[2022-03-26] MEDS: MORPHINE SULFATE (*CRX) 4 MG/ML INJ IV PUSH ×2 (10:55→17:48)
[2022-03-26 11:12] LABS: Ammonia < 9 umol/L (9-30)
[2022-03-26 11:13] LABS: Alanine Aminotransferase 27 U/L (6-35); Albumin Level 4.2 g/dL (3.5-5.1); Alkaline Phosphatase 119 U/L (38-126); Anion Gap 8 mmol/L (8-16); Aspartate Amino Transferase 28 U/L (14-36); Bilirubin,Total 0.3 mg/dL (0.2-1.3); Blood Urea Nitrogen 8 mg/dL (7-17); Calcium 8.9 mg/dL (8.4-10.2); Carbon Dioxide 28 mmol/L (22-30); Chloride 101 mmol/L (98-107); Estimated Glomerular Filt Rate > 60; Glucose 142 mg/dL (65-110); Lipase 263 U/L (23-300); Potassium 4.1 mmol/L (3.4-5.0); Sodium 137 mmol/L (137-145)
[2022-03-26 11:15] LABS: Basophils Absolute Auto 0.1 K/mm3 (0.0-0.1); Basophils Percent Auto 0.6 % (0.2-1.2); Eosinophils Absolute Auto 0.2 K/mm3 (0-0.3); Eosinophils Percent Auto 2.2 % (0-4.4); Hematocrit 48.5 % (37.0-47.0); Hemoglobin 15.5 g/dL (12.0-15.0); Immature Granulocyte Absolute 0.03 K/mm3 (0.00-0.031); Immature Granulocyte Percent A 0.3 % (0-0.5); Lymphocytes Absolute Auto 2.42 K/mm3 (0.9-3.2); Lymphocytes Percent Auto 23.8 % (18.3-44.2); Mean Corpuscular Hemoglobin 27.2 pg (26-34); Mean Corpuscular Volume 85.1 fl (80-100); Mean Platelet Volume 9.7 fl (7.4-10.4); Monocytes Absolute Auto 0.5 K/mm3 (0.1-0.6); Neutrophils Absolute Auto 6.9 K/mm3 (1.3-6.7); Neutrophils Percent Auto 68.1 % (45.5-73.1); Platelet Count Result 300 k/mm3 (150-375); Red Cell Distribution Width 13.9 % (11.5-14.5); White Blood Count 10.2 K/mm3 (4.5-10.0)
--- NOTE | 2022-03-26 11:15 | ED.ABDPAIN ---
HPI - Abdominal Pain General Chief Complaint: Abdominal Pain Stated Complaint: Liver pain Time Seen by Provider: 03/26/22 10:34 Source: patient, family, RN notes reviewed and old records reviewed Mode of arrival: ambulatory Limitations: no limitations History of Present Illness HPI narrative: This is a 72 year old female who presents for evaluation right upper abdominal pain. She reports constant severe right upper abdominal pain starting yesterday. This pain is worse with eating and drinking. She has associated nausea but denies vomiting, diarrhea or fever. She takes 2 Tylenol a day for her pain. Her pain has gradually worsened. She has chronic sob and she is chronically on 2 L NC oxygen. She denies any worsening shortness of breath or cough. She rates her pain 9/10. She is unable to describe her pain. Related Data Home Medications Medication Instructions Recorded Confirmed albuterol sulfate 2.5 mg/3 mL 2.5 mg inhalation Q4-6H PRN 11/20/19 03/26/22 (0.083 %) solution for nebulization Shortness Of Breath cholecalciferol (vitamin D3) 50 150 mcg PO DAILY 12/30/21 03/26/22 mcg (2,000 unit) capsule atorvastatin 10 mg tablet 10 mg PO HS 03/26/22 03/26/22 lisinopril 10 mg tablet 10 mg PO DAILY 03/26/22 03/26/22 venlafaxine 150 mg 150 mg PO HS 03/26/22 03/26/22 capsule,extended release 24 hr (Effexor XR) Allergies Allergy/AdvReac Type Severity Reaction Status Date / Time No Known Allergies Allergy Verified 03/26/22 15:31 Review of Systems Review of Systems: All systems reviewed & are unremarkable except as noted in HPI and below Constitutional: Constitutional: Denies chills, Denies fatigue and Denies fever(s) ENT: Denies sore throat Cardiovascular: Cardiovascular: Denies chest pain Respiratory: Respiratory: Denies chest congestion and Reports dyspnea Gastrointestinal: Gastrointestinal: Reports abdominal pain, Reports nausea and Denies vomiting Musculoskeletal: Musculoskeletal: Reports back pain PMFSH Past Medical History Medical History Asthma Bronchitis Chronic back pain COPD (chronic obstructive pulmonary disease) Depression Diabetes Diverticulitis Emphysema of lung Fibromyalgia H/O seasonal allergies Herniated disc HTN (hypertension) Hypercholesterolemia Left carpal tunnel syndrome Migraine On home O2 3L Pain in left wrist Rheumatoid arthritis Right carpal tunnel syndrome Skin disorder Surgical History Surgical History History of appendectomy History of cervical spinal arthrodesis History of cholecystectomy History of hysterectomy Hx of breast reduction, elective Bilateral Family History Family History Sibling Family history of Alzheimer's disease Hypertension Mother Family history of osteoarthritis Father Family history of coronary artery disease Sibling Kidney disease Other Asthma Diabetes mellitus Family history of cardiovascular disease Heart disease History of high cholesterol History of lung disease Social History Social History Social History: Caffeine- coffee 2 cups daily Smoking packs per day: 1 Smoking cigarettes per day: 20.0 Years smoked: 55 Smoking pack-years: 55.00 Smoking status: Current every day smoker Tobacco type: cigarettes Alcohol intake: former Substance use: never Gender identity (if verbalized by the patient): Female Spiritual care concerns: No Exam Const: General: alert Nutritional Appearance: well nourished Orientation/consciousness: patient oriented x3 HENMT: Head: normal to inspection Eyes: Conjunctivae: conjunctivae normal EOM: EOMs intact bilaterally Chest: Chest palpation & inspection: normal inspection of the chest Resp: Effort & Inspection: normal respiratory effort
[2022-03-26 11:16] LABS: Partial Thromboplastin Time 30.1 SECONDS (22.3-36.8); Prothrombin Time 12.7 Seconds (11.1-14.7)
[2022-03-26 11:30] LABS: Appearance Urine Clear (Clear); Bilirubin Urine Negative (Negative); Blood Urine Negative (Negative); Color Urine Yellow (Yellow); Glucose Urine UA Negative (Negative); Ketones Urine Negative (Negative); Leukocyte Esterase Ur Negative LEU/UL (Negative); Nitrate Urine Negative (Negative); Protein Urine Negative (Negative); Specific Grav Ur 1.015 (1.001-1.035); Urobilinogen Urine 0.2 mg/dL (<2.0)
[2022-03-26 11:46] LABS: Add Urine Microscopic? NO
--- NOTE | 2022-03-26 13:00 | PM.IMHP ---
H&P: HPI History of Present Illness Date/Time: 03/26/22 13:00 Chief Complaint: Abdominal pain. Narrative: This is a very pleasant 72-year-old female smoker with chronic respiratory failure on oxygen, chronic obstructive pulmonary disease, type 2 diabetes mellitus, hypertension, rheumatoid arthritis, hyperlipidemia, cirrhosis, and antral ulcers with esophagitis and gastritis on EGD in March 2020 who presented to the emergency department from home for evaluation of abdominal pain. She developed diffuse upper abdominal discomfort described as a constant, dull aching pain several hours after dinner last evening. It is worse with eating and she has been scared to eat much other than dry toast. Tylenol seems to take the edge off however she has not been sleeping well due to the discomfort. On occasion the pain radiates into the mid to low chest and she has noticed that food tends to get stuck in the esophagus right around that same area. She also complains of nausea, abdominal bloating, and belching. CT of the abdomen and pelvis today showed acute interstitial pancreatitis though interestingly her lipase and LFTs are well within normal limits. She is being admitted in this setting for further treatment and evaluation. She denies fever, chills, and sweats. No vomiting or diarrhea. She denies hematemesis and melena. No significant indigestion symptoms. She has no known history of pancreatitis. No significant alcohol use. Unaware if she has ever had hypertriglyceridemia. Review of Systems Review of Systems: Twelve systems were reviewed. Endorses chronic dyspnea on exertion related to her COPD. She does continue to smoke and declines the need for nicotine patch. No sick contacts. No exertional chest pain. No orthopnea, PND, or edema. Except as documented, all other systems were reviewed and are negative. [facility] Past Medical History Medical History (Updated 03/26/22 @ 18:47 by Gosia Cleaning PA-C) Asthma Chronic back pain Chronic obstructive pulmonary disease Chronic respiratory failure with hypoxia, on home oxygen therapy Cirrhosis of liver Depression Diverticulitis Emphysema of lung Fibromyalgia Herniated disc Hypercholesterolemia Hypertension Left carpal tunnel syndrome Migraine Rheumatoid arthritis Seasonal allergies Tobacco dependence Type 2 diabetes mellitus Surgical History Surgical History (Updated 03/26/22 @ 18:39 by Gosia Cleaning PA-C) History of appendectomy History of bilateral breast reduction surgery History of cervical spinal arthrodesis History of cholecystectomy History of hysterectomy Family History Family History Sibling Family history of Alzheimer's disease Hypertension Mother Family history of osteoarthritis Father Family history of coronary artery disease Sibling Kidney disease Other Asthma Diabetes mellitus Family history of cardiovascular disease Heart disease History of high cholesterol History of lung disease Social History Social History (Updated 03/26/22 @ 18:40 by Gosia Cleaning PA-C) Social History: Surrogate decision maker: Gail Schultz, daughter. Code status: Full code. Smoking packs per day: 1 Smoking cigarettes per day: 20.0 Years smoked: 55 Smoking pack-years: 55.00 Smoking status: Current every day smoker Tobacco type: cigarettes Alcohol intake: former Substance use: never Spiritual care concerns: No Meds Home Medications and Allergies Home Medications Medication Instructions Recorded Confirmed Type albuterol sulfate 2.5 mg/3 mL 2.5 mg inhalation Q4-6H PRN 11/20/19 03/26/22 History (0.083 %) solution for nebulization Shortness Of Breath tiotropium bromide 2.5 2 puff inhalation DAILY #18 grams 10/24/20 03/26/22 Rx mcg/actuation mist for inhalation (Spiriva Respimat) alendronate 70 mg tablet (Fosamax) 70 mg PO WEEKLY #12 tabs 03/06/21 03/26/22 Rx
[2022-03-26] MEDS: SODIUM CHLORIDE 0.9% IV 1,000 ML 125 ML IV CONT (13:18)
[2022-03-26] MEDS: HYDROmorphone HCL INJ (*CRX) 1 MG/ML SYR IV PUSH (13:18)
[2022-03-26] MEDS: IPRATROPIUM BR 0.02% INH SOLN 0.5 MG/2.5 ML VIAL INHALATION (15:01)
[2022-03-26] MEDS: ALBUTEROL SULFATE NEB 2.5 MG/3 ML INH 5 MG INHALATION (15:01)
--- NOTE | 2022-03-26 15:39 | ADMGEN ---
This patient, Ro Echavarria, was admitted to [facility] Surg Room 327-01 at 1500.. Patient/family oriented to hospital policies and general routines including ID bracelet, bed and alarms, visiting hours, pain management, procedures, bathroom and other care routines, personal items, smoking policy, room service/diet, and visiting hours. Information on how to activate the Rapid Response Team has been discussed. Patient/Family are encouraged to report perceived risks to care and to ask questions if they do not understand what they are told or what they should do.
[2022-03-26] MEDS: PANTOPRAZOLE SODIUM IV 40 MG VIAL IV PUSH (20:01)
[2022-03-26] MEDS: ATORVASTATIN 10 MG TABLET PO (20:02)
[2022-03-26] MEDS: VENLAFAXINE HCL XR 75 MG CAP.ER.24H 150 MG PO (20:02)
[2022-03-27] VITALS (8 sets, daily range): BP systolic 144–210; BP diastolic 54–86; PULSE 80–101; RESP 16–24; TEMP 36.2–37.2; O2SAT 92–97
[2022-03-27] MEDS: SODIUM CHLORIDE 0.9% IV 1,000 ML 125 ML IV CONT ×3 (00:15→15:46)
[2022-03-27 06:51] LABS: Basophils Absolute Auto 0.1 K/mm3 (0.0-0.1); Basophils Percent Auto 0.5 % (0.2-1.2); Eosinophils Absolute Auto 0.2 K/mm3 (0-0.3); Eosinophils Percent Auto 1.6 % (0-4.4); Hematocrit 44.1 % (37.0-47.0); Hemoglobin 13.9 g/dL (12.0-15.0); Immature Granulocyte Absolute 0.05 K/mm3 (0.00-0.031); Immature Granulocyte Percent A 0.5 % (0-0.5); Lymphocytes Absolute Auto 2.39 K/mm3 (0.9-3.2); Lymphocytes Percent Auto 24.7 % (18.3-44.2); Mean Corpuscular HGB Conc 31.5 g/dl (32-36); Mean Corpuscular Hemoglobin 26.8 pg (26-34); Mean Platelet Volume 9.7 fl (7.4-10.4); Monocytes Absolute Auto 0.5 K/mm3 (0.1-0.6); Monocytes Percent Auto 5.4 % (2.6-8.5); Neutrophils Absolute Auto 6.5 K/mm3 (1.3-6.7); Neutrophils Percent Auto 67.3 % (45.5-73.1); Platelet Count Result 264 k/mm3 (150-375); Red Blood Count 5.19 M/mm3 (4.2-5.4); Red Cell Distribution Width 13.6 % (11.5-14.5); White Blood Count 9.7 K/mm3 (4.5-10.0)
[2022-03-27 07:03] LABS: Alanine Aminotransferase 24 U/L (6-35); Albumin Level 3.7 g/dL (3.5-5.1); Alkaline Phosphatase 99 U/L (38-126); Anion Gap 5 mmol/L (8-16); Aspartate Amino Transferase 28 U/L (14-36); Bilirubin,Total 0.6 mg/dL (0.2-1.3); Blood Urea Nitrogen 9 mg/dL (7-17); Calcium 8.1 mg/dL (8.4-10.2); Carbon Dioxide 31 mmol/L (22-30); Chloride 101 mmol/L (98-107); Estimated CRCL calculation 63 ml/min; Estimated Glomerular Filt Rate > 60; Glucose 120 mg/dL (65-110); Lipase 107 U/L (23-300); Potassium 4.3 mmol/L (3.4-5.0); Sodium 137 mmol/L (137-145); Triglycerides 114 mg/dL (<150)
[2022-03-27] MEDS: lisinopriL 10 MG TABLET PO (08:42)
[2022-03-27] MEDS: CHOLECALCIFEROL 1,000 UNITS TABLET 2000 UNITS PO (08:42)
[2022-03-27] MEDS: PANTOPRAZOLE SODIUM IV 40 MG VIAL IV PUSH (08:42)
[2022-03-27] MEDS: FLUTICASONE PROPIONATE 0.05% NA SPR 16 GM BTL (*BKC) 2 SPRAY NASAL (08:43)
[2022-03-27] MEDS: FLUTICASONE/SALMETEROL 115-21 MCG INHALER 1 PUFF 2 PUFF INHALATION ×2 (09:40→20:16)
[2022-03-27] MEDS: UMECLIDINIUM BROMIDE 62.5 MCG ELLIPTA 1 PUFF INHALATION (09:40)
--- NOTE | 2022-03-27 10:31 | WPDGICN ---
Assessment and Plan Assessment and plan (1) Acute pancreatitis: Code(s): K85.90 - Acute pancreatitis without necrosis or infection, unspecified Status: Acute Assessment and Plan: At this point we will will assume it is idiopathic pancreatitis. Her liver enzymes are normal, therefore the likelihood of common bile duct stones or sludge is low. I think that she should be able to tolerate at least a clear liquid diet. I am going to order an MARISELA to rule out but the possibility of a autoimmune pancreatitis and/or autoimmune liver disease (2) Cirrhosis of liver: Code(s): K74.60 - Unspecified cirrhosis of liver Status: Acute Assessment and Plan: CT scan confirms this diagnosis and was mention in her H&P but she denies having been told that she has cirrhosis. She also denies significant alcohol use. I would suspect that this has been worked up in the past we do not have any documentation in our record here (3) Dysphagia: Code(s): R13.10 - Dysphagia, unspecified Status: Acute Assessment and Plan: she states that she had brief relief with esophageal dilatation in the past. She had EGD 2 years ago when she was having dysphagia but dilatation apparently was not performed at her symptoms did not improve. I will schedule her for EGD to be done on Tuesday . Prior endoscopy did show esophagitis. She is not currently on a PPI at home but has been started on pantoprazole here. (4) Chronic respiratory failure with hypoxia, on home oxygen therapy: Code(s): J96.11 - Chronic respiratory failure with hypoxia; Z99.81 - Dependence on supplemental oxygen Status: Acute Assessment and Plan: she denies shortness of breath at present. She has not been coughing excessively. GI Consult Note Consult date/time: 03/27/22 10:31 HPI: Ro Echavarria is a 72 year old female who presented to the hospital with abdominal pain which she states is constant in began after dinner. She has had a prior cholecystectomy. She has pancreatitis per CT scan although lipase is normal. She does not believe that she has had pancreatitis in the past. Also she denies having been told she has cirrhosis although it is seen on CT scan. She denies drinking alcohol heavily. She denies any history of hepatitis. She was nauseated yesterday but not today, willing to try eating. She also has a history of smoking most of her life, has COPD and has oxygen at home. She has history of having had antral ulcers found on EGD 2 years ago. She has had dysphagia for solid food for quite a while. Food will get stuck and that she tries drinking water but will Brandi shooting back up. EGD was done [address] Scott, who does not describe any stricture. Esophageal dilatation was not done as far as I can tell. She states that previously she has had esophageal dilatation it has helped her. Review of Systems Review of Systems: All systems reviewed & are unremarkable except as noted in HPI and below PMFSH Past Medical History Medical History (Updated 03/26/22 @ 18:47 by Gosia Cleaning PA-C) Asthma Chronic back pain Chronic obstructive pulmonary disease Chronic respiratory failure with hypoxia, on home oxygen therapy Cirrhosis of liver Depression Diverticulitis Emphysema of lung Fibromyalgia Herniated disc Hypercholesterolemia Hypertension Left carpal tunnel syndrome Migraine Rheumatoid arthritis Seasonal allergies Tobacco dependence Type 2 diabetes mellitus Surgical History Surgical History (Updated 03/26/22 @ 18:39 by Gosia Cleaning PA-C) History of appendectomy History of bilateral breast reduction surgery History of cervical spinal arthrodesis History of cholecystectomy History of hysterectomy Family History Family History Sibling Family history of Alzheimer's disease Hypertension Mother Family h
--- NOTE | 2022-03-27 13:24 | PM.IMPN ---
Progress Note: A&P Assessment and Plan (1) Acute pancreatitis: Code(s): K85.90 - Acute pancreatitis without necrosis or infection, unspecified Status: Acute Assessment and Plan: Acute interstitial pancreatitis noted on CT though interestingly her LFTs and lipase are are within normal limits. She will be on bowel rest overnight however I will let her have a small cup of ice this evening as long as it does not cause her pain to become worse. She will be judiciously rehydrated. Analgesics available as needed. (2) Dysphagia: Code(s): R13.10 - Dysphagia, unspecified Status: Acute Assessment and Plan: EGD in March [address] Boyer showed esophagitis, gastritis, and shallow antral ulcers. She is once again having symptoms of dysphagia with almost all food. With her bloating and abdominal pain after eating, I wonder if she may have recurrent ulcers thus will ask GI to see her in consultation. She has been started on IV Protonix 40 mg daily. (3) Cirrhosis of liver: Code(s): K74.60 - Unspecified cirrhosis of liver Status: Acute Assessment and Plan: Noted on imaging several years ago. I am not certain she has had a workup for this, however. Not acutely decompensated. (4) Type 2 diabetes mellitus: Code(s): E11.9 - Type 2 diabetes mellitus without complications Status: Acute Assessment and Plan: Diet-controlled. Recent hemoglobin A1c was 6.3%. (5) Hypertension: Code(s): I10 - Essential (primary) hypertension Status: Acute Assessment and Plan: Blood pressures were reviewed and they have been running a bit high, likely due to pain. She may take her antihypertensives with sips of water. Continue to monitor daily. (6) Tobacco dependence: Code(s): F17.200 - Nicotine dependence, unspecified, uncomplicated Status: Acute Assessment and Plan: Smoking cessation is imperative and was discussed. Nicotine patch available per patient request. (7) Chronic obstructive pulmonary disease: Code(s): J44.9 - Chronic obstructive pulmonary disease, unspecified Status: Acute Assessment and Plan: Some wheezing on exam though she reports being due for her nebulizers. Continue inhalers. No need for steroids at this time. Additional Plan 03/27/2022 interval history: patient presented abdominal pain CT scan of the abdomen showed interstitial pancreatitis as patient lipase and liver enzymes are normal seen GI and suspect patient has idiopathic pancreatitis further evaluate and to rule out autoimmune disease MARISELA has been ordered will follow-up, there is also suspicion of liver cirrhosis there has been chronic, patient also has dysphagia had dilation in the past with some relief GI recommended PPI, we have started the patient clear liquid will advance her diet as tolerated and further recommendation to follow. Subjective Date/time seen: 03/27/22 13:24 This is a very pleasant 72-year-old female smoker with chronic respiratory failure on oxygen, chronic obstructive pulmonary disease, type 2 diabetes mellitus, hypertension, rheumatoid arthritis, hyperlipidemia, cirrhosis, and antral ulcers with esophagitis and gastritis on EGD in March 2020 who presented to the emergency department from home for evaluation of abdominal pain. She developed diffuse upper abdominal discomfort described as a constant, dull aching pain several hours after dinner last evening. It is worse with eating and she has been scared to eat much other than dry toast. Tylenol seems to take the edge off however she has not been sleeping well due to the discomfort. On occasion the pain radiates into the mid to low chest and she has noticed that food tends to get stuck in the esophagus right around that same area. She also complains of nausea, abdominal bloating, and belching. CT of the abdomen and pelvis today showed acute interstitial pancreatitis though
[2022-03-27] MEDS: MORPHINE SULFATE (*CRX) 2 MG/ML INJ IV PUSH (19:33)
[2022-03-27] MEDS: VENLAFAXINE HCL XR 75 MG CAP.ER.24H 150 MG PO (19:34)
[2022-03-27] MEDS: ONDANSETRON INJ 4 MG/2 ML VIAL IV PUSH (19:34)
[2022-03-27] MEDS: ATORVASTATIN 10 MG TABLET PO (19:35)
[2022-03-28 05:32] VITALS: BP 127/52; PULSE 77; RESP 18; TEMP 36.2; O2SAT 98
[2022-03-28 06:32] LABS: Hemoglobin 12.3 g/dL (12.0-15.0); Mean Corpuscular HGB Conc 31.5 g/dl (32-36); Mean Corpuscular Hemoglobin 27.9 pg (26-34); Mean Corpuscular Volume 88.4 fl (80-100); Mean Platelet Volume 9.8 fl (7.4-10.4); Platelet Count Result 197 k/mm3 (150-375); Red Blood Count 4.41 M/mm3 (4.2-5.4); Red Cell Distribution Width 13.6 % (11.5-14.5); White Blood Count 7.1 K/mm3 (4.5-10.0)
[2022-03-28 06:44] LABS: Lipase 49 U/L (23-300)
[2022-03-28] MEDS: SODIUM CHLORIDE 0.9% IV 1,000 ML 125 ML IV CONT ×3 (07:41→23:11)
[2022-03-28] MEDS: FLUTICASONE PROPIONATE 0.05% NA SPR 16 GM BTL (*BKC) 2 SPRAY NASAL (08:05)
[2022-03-28] MEDS: PANTOPRAZOLE SODIUM IV 40 MG VIAL IV PUSH (08:06)
[2022-03-28] MEDS: CHOLECALCIFEROL 1,000 UNITS TABLET 2000 UNITS PO (08:06)
[2022-03-28] MEDS: lisinopriL 10 MG TABLET PO (08:06)
[2022-03-28] MEDS: FLUTICASONE/SALMETEROL 115-21 MCG INHALER 1 PUFF 2 PUFF INHALATION ×2 (08:53→20:50)
[2022-03-28] MEDS: UMECLIDINIUM BROMIDE 62.5 MCG ELLIPTA 1 PUFF INHALATION (08:54)
[2022-03-28 08:58] VITALS: O2SAT 93
[2022-03-28 09:39] LABS: Alanine Aminotransferase 18 U/L (6-35); Albumin Level 3.2 g/dL (3.5-5.1); Alkaline Phosphatase 71 U/L (38-126); Anion Gap 4 mmol/L (8-16); Aspartate Amino Transferase 30 U/L (14-36); Bilirubin,Total 0.7 mg/dL (0.2-1.3); Blood Urea Nitrogen 7 mg/dL (7-17); Calcium 7.3 mg/dL (8.4-10.2); Carbon Dioxide 24 mmol/L (22-30); Chloride 109 mmol/L (98-107); Estimated CRCL calculation 86 ml/min; Estimated Glomerular Filt Rate > 60; Glucose 85 mg/dL (65-110); Potassium 3.8 mmol/L (3.4-5.0); Sodium 137 mmol/L (137-145)
[2022-03-28 10:38] VITALS: O2SAT 93
[2022-03-28] MEDS: HYDROcodone/acetaminophen (*CRX) 5-325 MG TABLET 1 TAB PO (11:32)
--- NOTE | 2022-03-28 12:37 | WPDGIPROGNO ---
Progress Note: A&P Assessment and Plan (1) Acute pancreatitis: Code(s): K85.90 - Acute pancreatitis without necrosis or infection, unspecified Status: Acute Assessment and Plan: At this point we will will assume it is idiopathic pancreatitis. Her liver enzymes are normal, therefore the likelihood of common bile duct stones or sludge is low. I think that she should be able to tolerate at least a clear liquid diet. I am going to order an MARISELA to rule out but the possibility of a autoimmune pancreatitis and/or autoimmune liver disease (2) Cirrhosis of liver: Code(s): K74.60 - Unspecified cirrhosis of liver Status: Acute Assessment and Plan: CT scan confirms this diagnosis and was mention in her H&P but she denies having been told that she has cirrhosis. She also denies significant alcohol use. I would suspect that this has been worked up in the past we do not have any documentation in our record here (3) Dysphagia: Code(s): R13.10 - Dysphagia, unspecified Status: Acute Assessment and Plan: she states that she had brief relief with esophageal dilatation in the past. She had EGD 2 years ago when she was having dysphagia but dilatation apparently was not performed at her symptoms did not improve. I will schedule her for EGD to be done on Tuesday . Prior endoscopy did show esophagitis. She is not currently on a PPI at home but has been started on pantoprazole here. 03/28 EGD will be performed tomorrow (4) Chronic respiratory failure with hypoxia, on home oxygen therapy: Code(s): J96.11 - Chronic respiratory failure with hypoxia; Z99.81 - Dependence on supplemental oxygen Status: Acute Assessment and Plan: she denies shortness of breath at present. She has not been coughing excessively. Subjective Date/time seen: 03/27/22? 10:31 HPI: Ro Echavarria is a 72 year old female? who presented to the hospital with abdominal pain which she states is constant in began after dinner.? She has had a prior cholecystectomy.? She has pancreatitis per CT scan although lipase is normal.? She does not believe that she has had pancreatitis in the past.? Also she denies having been told she has cirrhosis although it is seen on CT scan.? She denies drinking alcohol heavily.? She denies any history of hepatitis.? She was nauseated yesterday but not today, willing to try eating. ? She also has a history of smoking most of her life, has COPD and has oxygen at home.? She has history of having had antral ulcers found on EGD 2 years ago.? She has had dysphagia for solid food for quite a while.? Food will get stuck and that she tries drinking water but will Brandi shooting back up.? EGD was done [address] Scott, who does not describe any stricture.? Esophageal dilatation was not done as far as I can tell.? She states that previously she has had esophageal dilatation it has helped her. 03/28/22 12:37 she is feeling better. She has been advanced to full liquid diet. Exam Const: General: alert Orientation/consciousness: patient oriented x3 Resp: Auscultation: clear to auscultation bilaterally Cardio: Rhythm: regular rhythm GI: GI Palp: Yes abdominal tenderness ( Mostly upper abdomen, epigastric and RUQ, LD you could do) and Yes Hepatomegaly present Percussion: Yes normal to percussion Auscultation: normal bowel sounds Neuro: General: patient oriented x3 Objective Data Vital Signs Vital Signs: Vital Signs - 24 hr 03/27/22 14:00 03/27/22 19:03 03/27/22 18:39 Temperature 37.2 C 36.2 C L 36.2 C L Pulse Rate 92 101 H 101 H Respiratory Rate 18 20 24 H Blood Pressure 198/60 H 210/86 H 210/86 H Pulse Oximetry 97 95 95 Oxygen Delivery Oxygen Flow Rate 03/27/22 20:17 03/27/22 20:17 03/27/22 22:00 Temperature 36.6 C Pulse Rate 80 80 97 Respiratory Rate 18 18 18 Blood Pressure 151/54 H Pulse Oximetry 95 93 Oxygen Delivery Nasal Sara
[2022-03-28] MEDS: NICOTINE (*PBKC) 21 MG PATCH 1 PATCH TRANSDERM (12:43)
[2022-03-28 14:00] VITALS: BP 101/78; PULSE 79; RESP 20; TEMP 37.3; O2SAT 96
[2022-03-28 19:26] VITALS: BP 142/51; PULSE 81; RESP 18; TEMP 36.3; O2SAT 93
[2022-03-28 20:55] VITALS: PULSE 72; O2SAT 93
[2022-03-28 21:30] LABS: Glucose Point of Care 80 mg/dl (65-105)
[2022-03-28] MEDS: VENLAFAXINE HCL XR 75 MG CAP.ER.24H 150 MG PO (21:30)
[2022-03-28] MEDS: ATORVASTATIN 10 MG TABLET PO (21:30)
[2022-03-28] MEDS: MORPHINE SULFATE (*CRX) 2 MG/ML INJ IV PUSH (21:30)
[2022-03-29] VITALS (9 sets, daily range): BP systolic 111–140; BP diastolic 47–86; PULSE 72–102; RESP 14–18; TEMP 36.2–36.6; O2SAT 93–98
[2022-03-29 06:10] LABS: Hematocrit 41.6 % (37.0-47.0); Hemoglobin 13.1 g/dL (12.0-15.0); Mean Corpuscular HGB Conc 31.5 g/dl (32-36); Mean Corpuscular Hemoglobin 27.3 pg (26-34); Mean Corpuscular Volume 86.8 fl (80-100); Mean Platelet Volume 9.2 fl (7.4-10.4); Platelet Count Result 203 k/mm3 (150-375); Red Blood Count 4.79 M/mm3 (4.2-5.4); Red Cell Distribution Width 13.5 % (11.5-14.5); White Blood Count 7.9 K/mm3 (4.5-10.0)
[2022-03-29 06:25] LABS: Alanine Aminotransferase 19 U/L (6-35); Albumin Level 3.5 g/dL (3.5-5.1); Alkaline Phosphatase 94 U/L (38-126); Anion Gap 4 mmol/L (8-16); Aspartate Amino Transferase 25 U/L (14-36); Bilirubin,Total 0.6 mg/dL (0.2-1.3); Blood Urea Nitrogen 5 mg/dL (7-17); Calcium 8.2 mg/dL (8.4-10.2); Carbon Dioxide 33 mmol/L (22-30); Chloride 102 mmol/L (98-107); Estimated CRCL calculation 74 ml/min; Estimated Glomerular Filt Rate > 60; Glucose 108 mg/dL (65-110); Potassium 3.8 mmol/L (3.4-5.0); Sodium 139 mmol/L (137-145)
[2022-03-29] MEDS: UMECLIDINIUM BROMIDE 62.5 MCG ELLIPTA 1 PUFF INHALATION (08:20)
[2022-03-29] MEDS: FLUTICASONE/SALMETEROL 115-21 MCG INHALER 1 PUFF 2 PUFF INHALATION (08:20)
[2022-03-29] MEDS: FLUTICASONE PROPIONATE 0.05% NA SPR 16 GM BTL (*BKC) 2 SPRAY NASAL (09:01)
[2022-03-29] MEDS: PANTOPRAZOLE SODIUM IV 40 MG VIAL IV PUSH (09:01)
--- NOTE | 2022-03-29 12:35 | WPDANESEPPF ---
Anes - Initial Pre Proc Eval Procedure: Operation Date: 03/29/22 14:30 Proposed Procedures p Esophagogastroduodenoscopy - Aidan Campos MD Date/Time: 03/29/22 12:35 Surgeon: Cordell Dietrich MD Pre Op Diagnosis: Acute interstitial pancreatitis Patient Data Age: 72 Gender: F Height: 1.6 m Weight: 84.2 kg Last Vital Signs Temp 36.6 C 03/29/22 06:00 Pulse 72 03/29/22 08:20 Resp 16 03/29/22 06:00 BP 140/60 03/29/22 06:00 Pulse Ox 94 03/29/22 08:20 O2 Del Method Nasal Cannula 03/29/22 08:20 O2 Flow Rate 2 03/29/22 08:20 Allergies Allergy/AdvReac Type Severity Reaction Status Date / Time No Known Allergies Allergy Verified 03/29/22 12:48 Home Medications Medication Instructions Recorded Confirmed Type albuterol sulfate 2.5 mg/3 mL 2.5 mg inhalation Q4-6H PRN 11/20/19 03/26/22 History (0.083 %) solution for nebulization Shortness Of Breath tiotropium bromide 2.5 2 puff inhalation DAILY #18 grams 10/24/20 03/26/22 Rx mcg/actuation mist for inhalation (Spiriva Respimat) alendronate 70 mg tablet (Fosamax) 70 mg PO WEEKLY #12 tabs 03/06/21 03/26/22 Rx budesonide-formoterol HFA 160 2 puff inhalation Q12H #30.6 grams 10/26/21 03/26/22 Rx mcg-4.5 mcg/actuation aerosol inhaler (Symbicort) fluticasone propionate 50 2 spray intranasal DAILY #18 mL 12/23/21 03/26/22 Rx mcg/actuation nasal spray,suspension (Flonase Allergy Relief) cholecalciferol (vitamin D3) 50 150 mcg PO DAILY 12/30/21 03/26/22 History mcg (2,000 unit) capsule atorvastatin 10 mg tablet 10 mg PO HS 03/26/22 03/26/22 History lisinopril 10 mg tablet 10 mg PO DAILY 03/26/22 03/26/22 History venlafaxine 150 mg 150 mg PO HS 03/26/22 03/26/22 History capsule,extended release 24 hr (Effexor XR) Laboratory Tests 03/28/22 03/29/22 03/29/22 21:26 05:59 05:59 WBC 7.9 K/mm3 K/mm3 (4.5-10.0) RBC 4.79 M/mm3 M/mm3 (4.2-5.4) Hgb 13.1 g/dL g/dL (12.0-15.0) Hct 41.6 % % (37.0-47.0) MCV 86.8 fl fl (80-100) MCH 27.3 pg pg (26-34) MCHC 31.5 g/dl L g/dl (32-36) RDW 13.5 % % (11.5-14.5) Plt Count 203 k/mm3 k/mm3 (150-375) MPV 9.2 fl fl (7.4-10.4) Sodium 139 mmol/L mmol/L (137-145) Potassium 3.8 mmol/L mmol/L (3.4-5.0) Chloride 102 mmol/L mmol/L (98-107) Carbon Dioxide 33 mmol/L H mmol/L (22-30) Anion Gap 4 mmol/L L mmol/L (8-16) BUN 5 mg/dL L mg/dL (7-17) Creatinine 0.60 mg/dL L mg/dL (0.7-1.0) Estim Creat Clear Calc 74 ml/min ml/min Estimated GFR > 60 (59 - ) Glucose 108 mg/dL mg/dL (65-110) POC Capillary Glucose 80 mg/dl mg/dl (65-105) Calcium 8.2 mg/dL L mg/dL (8.4-10.2) Total Bilirubin 0.6 mg/dL mg/dL (0.2-1.3) AST 25 U/L U/L (14-36) ALT 19 U/L U/L (6-35) Alkaline Phosphatase 94 U/L U/L (38-126) Total Protein 7.0 g/dL g/dL (6.3-8.2) Albumin 3.5 g/dL g/dL (3.5-5.1) Patient hx anesthesia problems: none Family hx anesthesia problems: none Results Review: All pre-operative results and documents have been reviewed as part of the pre-operative evaluation. [facility] Past Medical History Medical History (Updated 03/26/22 @ 18:47 by Gosia Cleaning PA-C) Asthma Chronic back pain Chronic obstructive pulmonary disease Chronic respiratory failure with hypoxia, on home oxygen therapy Cirrhosis of liver Depression Diverticulitis Emphysema of lung Fibromyalgia Herniated disc Hypercholesterolemia Hypertension Left carpal tunnel syndrome Migraine Rheumatoid arthritis Seasonal allergies Tobacco dependence Type 2 diabetes mellitus Surgical History Surgical History (Updated 03/26/22 @ 18:39 by Gosia Cleaning PA-C) History of appendectomy Histor
[2022-03-29 12:48] LABS: Glucose Point of Care 116 mg/dl (65-105)
[2022-03-29] MEDS: LACTATED RINGERS 1,000 ML 150 ML IV CONT (12:56)
--- NOTE | 2022-03-29 14:30 | PM.IMPN ---
Progress Note: A&P Assessment and Plan (1) Acute pancreatitis: Code(s): K85.90 - Acute pancreatitis without necrosis or infection, unspecified Status: Acute Assessment and Plan: Acute interstitial pancreatitis noted on CT though interestingly her LFTs and lipase are are within normal limits. She will be on bowel rest overnight however I will let her have a small cup of ice this evening as long as it does not cause her pain to become worse. She will be judiciously rehydrated. Analgesics available as needed. (2) Dysphagia: Code(s): R13.10 - Dysphagia, unspecified Status: Acute Assessment and Plan: EGD in March [address] Boyer showed esophagitis, gastritis, and shallow antral ulcers. She is once again having symptoms of dysphagia with almost all food. With her bloating and abdominal pain after eating, I wonder if she may have recurrent ulcers thus will ask GI to see her in consultation. She has been started on IV Protonix 40 mg daily. (3) Cirrhosis of liver: Code(s): K74.60 - Unspecified cirrhosis of liver Status: Acute Assessment and Plan: Noted on imaging several years ago. I am not certain she has had a workup for this, however. Not acutely decompensated. (4) Type 2 diabetes mellitus: Code(s): E11.9 - Type 2 diabetes mellitus without complications Status: Acute Assessment and Plan: Diet-controlled. Recent hemoglobin A1c was 6.3%. (5) Hypertension: Code(s): I10 - Essential (primary) hypertension Status: Acute Assessment and Plan: Blood pressures were reviewed and they have been running a bit high, likely due to pain. She may take her antihypertensives with sips of water. Continue to monitor daily. (6) Tobacco dependence: Code(s): F17.200 - Nicotine dependence, unspecified, uncomplicated Status: Acute Assessment and Plan: Smoking cessation is imperative and was discussed. Nicotine patch available per patient request. (7) Chronic obstructive pulmonary disease: Code(s): J44.9 - Chronic obstructive pulmonary disease, unspecified Status: Acute Assessment and Plan: Some wheezing on exam though she reports being due for her nebulizers. Continue inhalers. No need for steroids at this time. Additional Plan 03/27/2022 interval history: patient presented abdominal pain CT scan of the abdomen showed interstitial pancreatitis as patient lipase and liver enzymes are normal seen GI and suspect patient has idiopathic pancreatitis further evaluate and to rule out autoimmune disease MARISELA has been ordered will follow-up, there is also suspicion of liver cirrhosis there has been chronic, patient also has dysphagia had dilation in the past with some relief GI recommended PPI, we have started the patient clear liquid will advance her diet as tolerated and further recommendation to follow. 03/28/2022 interval history: patient presented abdominal pain CT scan of the abdomen showed interstitial pancreatitis as patient lipase and liver enzymes are normal seen GI and suspect patient has idiopathic pancreatitis further evaluate and to rule out autoimmune disease MARISELA has been ordered will follow-up, there is also suspicion of liver cirrhosis there has been chronic, patient also has dysphagia had dilation in the past with some relief GI recommended PPI, we have started the patient clear liquid, today will advance her diet as tolerated and further recommendation to follow. possibly discharge the patient tomorrow morning. 03/29/2022 interval history: patient presented abdominal pain CT scan of the abdomen showed interstitial pancreatitis as patient lipase and liver enzymes are normal seen GI and suspect patient has idiopathic pancreatitis further evaluate and to rule out autoimmune disease MARISELA was done and its negative , there is also suspicion of liver cirrhosis there has been chronic, patient also has dysphagia h
--- NOTE | 2022-03-29 17:37 | PM.DS ---
DS: Admitting Diagnosis Discharge Date 03/29/2022 Admitting Diagnosis abdominal pain DS: Discharge Diagnosis Discharge Diagnosis (1) Acute pancreatitis: Code(s): K85.90 - Acute pancreatitis without necrosis or infection, unspecified Status: Acute Assessment and Plan: Acute interstitial pancreatitis noted on CT though interestingly her LFTs and lipase are are within normal limits. She will be on bowel rest overnight however I will let her have a small cup of ice this evening as long as it does not cause her pain to become worse. She will be judiciously rehydrated. Analgesics available as needed. (2) Dysphagia: Code(s): R13.10 - Dysphagia, unspecified Status: Acute Assessment and Plan: EGD in March [address] Boyer showed esophagitis, gastritis, and shallow antral ulcers. She is once again having symptoms of dysphagia with almost all food. With her bloating and abdominal pain after eating, I wonder if she may have recurrent ulcers thus will ask GI to see her in consultation. She has been started on IV Protonix 40 mg daily. (3) Cirrhosis of liver: Code(s): K74.60 - Unspecified cirrhosis of liver Status: Acute Assessment and Plan: Noted on imaging several years ago. I am not certain she has had a workup for this, however. Not acutely decompensated. (4) Type 2 diabetes mellitus: Code(s): E11.9 - Type 2 diabetes mellitus without complications Status: Acute Assessment and Plan: Diet-controlled. Recent hemoglobin A1c was 6.3%. (5) Hypertension: Code(s): I10 - Essential (primary) hypertension Status: Acute Assessment and Plan: Blood pressures were reviewed and they have been running a bit high, likely due to pain. She may take her antihypertensives with sips of water. Continue to monitor daily. (6) Tobacco dependence: Code(s): F17.200 - Nicotine dependence, unspecified, uncomplicated Status: Acute Assessment and Plan: Smoking cessation is imperative and was discussed. Nicotine patch available per patient request. (7) Chronic obstructive pulmonary disease: Code(s): J44.9 - Chronic obstructive pulmonary disease, unspecified Status: Acute Assessment and Plan: Some wheezing on exam though she reports being due for her nebulizers. Continue inhalers. No need for steroids at this time. DS: Summary Hospital Course Reason for hospitalization: Abdominal pain. Narrative: This is a very pleasant 72-year-old female smoker with chronic respiratory failure on oxygen, chronic obstructive pulmonary disease, type 2 diabetes mellitus, hypertension, rheumatoid arthritis, hyperlipidemia, cirrhosis, and antral ulcers with esophagitis and gastritis on EGD in March 2020 who presented to the emergency department from home for evaluation of abdominal pain. She developed diffuse upper abdominal discomfort described as a constant, dull aching pain several hours after dinner last evening. It is worse with eating and she has been scared to eat much other than dry toast. Tylenol seems to take the edge off however she has not been sleeping well due to the discomfort. On occasion the pain radiates into the mid to low chest and she has noticed that food tends to get stuck in the esophagus right around that same area. She also complains of nausea, abdominal bloating, and belching. CT of the abdomen and pelvis today showed acute interstitial pancreatitis though interestingly her lipase and LFTs are well within normal limits. She is being admitted in this setting for further treatment and evaluation. She denies fever, chills, and sweats. No vomiting or diarrhea. She denies hematemesis and melena. No significant indigestion symptoms. She has no known history of pancreatitis. No significant alcohol use. Unaware if she has ever had hypertriglyceridemia. Hospital Course: patient presented abdominal pain CT scan of
== END 2022-03-29 18:15 | disposition home or self-care (01) | DRG 439 ==
LOC: ANHED 10:50 → ANH3MEDSUR 18:27
PROVIDERS: Internal Medicine Gastroenterology; Admitting Provider Internal Medicine; Emergency Provider General Practice; PCP Internal Medicine; Visit Provider Family Medicine
PROC: 0DJ08ZZ Inspection of Upper Intestinal Tract, Via Natural or Artificial Opening Endoscopic (ICD-10-PCS; CPT 43235; principal; 2022-03-29 14:30)
DX: K85.90 Acute pancreatitis without necrosis or infection, unspecified (principal); J96.11 Chronic respiratory failure with hypoxia; E11.9 Type 2 diabetes mellitus without complications; E78.5 Hyperlipidemia, unspecified; M06.9 Rheumatoid arthritis, unspecified; K74.60 Unspecified cirrhosis of liver; M79.7 Fibromyalgia; I10 Essential (primary) hypertension; F17.210 Nicotine dependence, cigarettes, uncomplicated; J43.9 Emphysema, unspecified; Z99.81 Dependence on supplemental oxygen; F32.9 Major depressive disorder, single episode, unspecified; G89.29 Other chronic pain; Z79.899 Other long term (current) drug therapy; Z79.51 Long term (current) use of inhaled steroids; R13.10 Dysphagia, unspecified
CPT/HCPCS: 36415; 70450; 71045; 72125; 74176; 80053; 81003; 82140; 82948; 83690; 83735; 84478; 85025; 85027; 85610; 85730; 86038; 88305; 94640; 96374; 96375; 99285; A9270; C1726; C9113; J1170; J2270; J2405; J2704; J7030; J7120

== ENCOUNTER 2023-09-23 10:19 | Outpatient (CLI) | payer MEDICARE, SELFPAY ==
[2023-09-23 12:49] LABS: Basophils Percent Auto 0.5 % (0.2-1.2); Eosinophils Absolute Auto 0.2 K/mm3 (0-0.3); Eosinophils Percent Auto 2.5 % (0-4.4); Hematocrit 47.4 % (37.0-47.0); Hemoglobin 14.7 g/dL (12.0-15.0); Immature Granulocyte Absolute 0.02 K/mm3 (0.00-0.031); Immature Granulocyte Percent A 0.2 % (0-0.5); Lymphocytes Absolute Auto 1.98 K/mm3 (0.9-3.2); Lymphocytes Percent Auto 24.4 % (18.3-44.2); Mean Corpuscular Volume 80.7 fl (80-100); Mean Platelet Volume 9.9 fl (7.4-10.4); Monocytes Absolute Auto 0.5 K/mm3 (0.1-0.6); Monocytes Percent Auto 5.5 % (2.6-8.5); Neutrophils Absolute Auto 5.4 K/mm3 (1.3-6.7); Neutrophils Percent Auto 66.9 % (45.5-73.1); Platelet Count Result 278 k/mm3 (150-375); Red Blood Count 5.87 M/mm3 (4.2-5.4); Red Cell Distribution Width 14.5 % (11.5-14.5); White Blood Count 8.1 K/mm3 (4.5-10.0)
[2023-09-23 12:51] LABS: Alanine Aminotransferase 50 U/L (6-35); Albumin Level 4.4 g/dL (3.5-5.1); Alkaline Phosphatase 123 U/L (38-126); Anion Gap 9 mmol/L (8-16); Aspartate Amino Transferase 71 U/L (14-36); Bilirubin,Total 0.7 mg/dL (0.2-1.3); Blood Urea Nitrogen 11 mg/dL (7-17); Calcium 9.1 mg/dL (8.4-10.2); Carbon Dioxide 27 mmol/L (22-30); Chloride 97 mmol/L (98-107); Cholesterol 165 mg/dL (0-200); Estimated Glomerular Filt Rate > 60; Glucose 347 mg/dL (65-110); HDL Direct 48 mg/dL; Potassium 4.5 mmol/L (3.4-5.0); Sodium 133 mmol/L (137-145); Triglycerides 118 mg/dL (<150)
[2023-09-23 13:02] LABS: LDL Cholesterol Direct 93 mg/dL
== END 2023-09-23 10:20 | disposition home or self-care (01) ==
PROVIDERS: PCP Internal Medicine; Visit Provider Nurse Practitioner
DX: E11.9 Type 2 diabetes mellitus without complications (principal); Z79.4 Long term (current) use of insulin
CPT/HCPCS: 36415; 80053; 80061; 83036; 85025

== ENCOUNTER 2023-12-26 10:25 | Outpatient (CLI) | payer MEDICARE, SELFPAY ==
[2023-12-26 18:57] LABS: Basophils Percent Auto 0.6 % (0.2-1.2); Eosinophils Absolute Auto 0.2 K/mm3 (0-0.3); Eosinophils Percent Auto 2.9 % (0-4.4); Hematocrit 45.7 % (37.0-47.0); Hemoglobin 13.9 g/dL (12.0-15.0); Immature Granulocyte Absolute 0.01 K/mm3 (0.00-0.031); Immature Granulocyte Percent A 0.1 % (0-0.5); Lymphocytes Absolute Auto 2.23 K/mm3 (0.9-3.2); Lymphocytes Percent Auto 31.1 % (18.3-44.2); Mean Corpuscular HGB Conc 30.4 g/dl (32-36); Mean Corpuscular Hemoglobin 25.3 pg (26-34); Mean Corpuscular Volume 83.1 fl (80-100); Mean Platelet Volume 10.6 fl (7.4-10.4); Monocytes Absolute Auto 0.5 K/mm3 (0.1-0.6); Monocytes Percent Auto 6.4 % (2.6-8.5); Neutrophils Absolute Auto 4.2 K/mm3 (1.3-6.7); Neutrophils Percent Auto 58.9 % (45.5-73.1); Platelet Count Result 251 k/mm3 (150-375); Red Cell Distribution Width 14.5 % (11.5-14.5); White Blood Count 7.2 K/mm3 (4.5-10.0)
[2023-12-26 19:08] LABS: Iron 63 ug/dL (37-170)
[2023-12-26 19:20] LABS: Percent Iron Saturation 15 % (20-50)
[2023-12-26 19:49] LABS: Alanine Aminotransferase 56 U/L (6-35); Albumin Level 4.1 g/dL (3.5-5.1); Alkaline Phosphatase 130 U/L (38-126); Anion Gap 5 mmol/L (8-16); Aspartate Amino Transferase 75 U/L (14-36); Bilirubin,Total 0.4 mg/dL (0.2-1.3); Blood Urea Nitrogen 9 mg/dL (7-17); Calcium 9.2 mg/dL (8.4-10.2); Carbon Dioxide 30 mmol/L (22-30); Chloride 98 mmol/L (98-107); Estimated Glomerular Filt Rate > 60; Glucose 255 mg/dL (65-110); Potassium 4.2 mmol/L (3.4-5.0); Sodium 133 mmol/L (137-145)
[2023-12-26 20:02] LABS: Hemoglobin A1C 13.5 % (<5.7)
[2023-12-26 20:54] LABS: Folic Acid 12.9 ng/mL (2.76->20)
== END 2023-12-26 10:26 | disposition home or self-care (01) ==
PROVIDERS: PCP Internal Medicine; Visit Provider Nurse Practitioner
DX: E11.9 Type 2 diabetes mellitus without complications (principal); D64.9 Anemia, unspecified; Z79.4 Long term (current) use of insulin
CPT/HCPCS: 36415; 80053; 82607; 82728; 82746; 83036; 83540; 83550; 85025

== ENCOUNTER 2024-04-12 09:22 | Outpatient (CLI) | payer MEDICARE, SELFPAY ==
[2024-04-12 18:56] LABS: Basophils Absolute Auto 0.1 K/mm3 (0.0-0.1); Basophils Percent Auto 0.8 % (0.2-1.2); Eosinophils Absolute Auto 0.3 K/mm3 (0-0.3); Eosinophils Percent Auto 3.9 % (0-4.4); Hematocrit 47.3 % (37.0-47.0); Hemoglobin 14.7 g/dL (12.0-15.0); Immature Granulocyte Absolute 0.02 K/mm3 (0.00-0.031); Immature Granulocyte Percent A 0.3 % (0-0.5); Lymphocytes Absolute Auto 2.03 K/mm3 (0.9-3.2); Lymphocytes Percent Auto 25.6 % (18.3-44.2); Mean Corpuscular HGB Conc 31.1 g/dl (32-36); Mean Corpuscular Hemoglobin 26.3 pg (26-34); Mean Corpuscular Volume 84.6 fl (80-100); Mean Platelet Volume 10.5 fl (7.4-10.4); Monocytes Absolute Auto 0.5 K/mm3 (0.1-0.6); Monocytes Percent Auto 6.8 % (2.6-8.5); Neutrophils Percent Auto 62.6 % (45.5-73.1); Platelet Count Result 290 k/mm3 (150-375); Red Blood Count 5.59 M/mm3 (4.2-5.4); Red Cell Distribution Width 13.8 % (11.5-14.5); White Blood Count 7.9 K/mm3 (4.5-10.0)
[2024-04-12 19:05] LABS: Alanine Aminotransferase 65 U/L (6-35); Albumin Level 4.2 g/dL (3.5-5.1); Alkaline Phosphatase 153 U/L (38-126); Anion Gap 8 mmol/L (4-12); Aspartate Amino Transferase 54 U/L (14-36); Bilirubin,Total 0.7 mg/dL (0.2-1.3); Blood Urea Nitrogen 12 mg/dL (7-17); Carbon Dioxide 30 mmol/L (22-30); Chloride 97 mmol/L (98-107); Cholesterol 150 mg/dL (0-200); Estimated Glomerular Filt Rate > 60; Glucose 297 mg/dL (65-110); HDL Direct 45 mg/dL; Potassium 4.2 mmol/L (3.4-5.0); Sodium 135 mmol/L (137-145); Triglycerides 161 mg/dL (<150)
[2024-04-12 19:16] LABS: LDL Cholesterol Direct 93 mg/dL
[2024-04-12 22:40] LABS: Hemoglobin A1C 10.9 % (<5.7)
== END 2024-04-12 09:23 | disposition home or self-care (01) ==
PROVIDERS: PCP Internal Medicine; Visit Provider Nurse Practitioner
DX: D64.9 Anemia, unspecified (principal); E11.9 Type 2 diabetes mellitus without complications; Z79.4 Long term (current) use of insulin
CPT/HCPCS: 36415; 80053; 80061; 83036; 84443; 85025

== ENCOUNTER 2024-05-18 09:08 | Outpatient (CLI) | payer MEDICARE, MEDICAID, SELFPAY ==
--- NOTE | ~2024-05-18 | CT_ITS ---
CT Scan of the Chest without Contrast: Clinical Indication: Lung cancer screening, nicotine dependence Technique: Contiguous sections were acquired throughout the chest without intravenous contrast. Dose reduction technique was used on this scan by utilizing automated exposure control and iterative recon struction technique. The dose-length product (DLP) was 190.12 mGy-cm. COMPARISON: 08/25/2021 Findings: There is no evidence of any significant mediastinal, hilar or axillary lymphadenopathy. The mediastin al soft tissues appear normal. There is no evidence of pleural or pericardial effusion. Stable 2 mm right upper lobe pulmonary nodule. There is minimal emphysema. Several small calcified gr anulomas are present. Images through the upper abdomen reveal nodular contour of the liver. Impression: Lung RADS 2: Benign appearance. 12 month follow-up screening CT advised. Cirrhotic morphology of liver. Reviewed, dictated and finalized at [facility]. Impression: Lung RADS 2: Benign appearance. 12 month follow-up screening CT advised. Cirrhotic morphology of liver.
== END 2024-05-18 09:09 | disposition home or self-care (01) ==
PROVIDERS: PCP Internal Medicine; Visit Provider Nurse Practitioner
DX: Z12.2 Encounter for screening for malignant neoplasm of respiratory organs (principal); K74.60 Unspecified cirrhosis of liver; Z87.891 Personal history of nicotine dependence
CPT/HCPCS: 71271

== ENCOUNTER 2025-02-01 10:19 | Outpatient (CLI) | payer MEDICARE, MEDICAID, SELFPAY ==
--- OUTSIDE RECORDS SUMMARY | 2025-02-01 10:27 | XMS_ITS | Clinical Summary ---
Author Organization [facility] [place] Address [address] [place] [address] Care Team Providers Care Recruitment Manager Name Role Phone Casandra Reich BARBARA-MICHAEL Primary Care Provider [phone] Source Comments [facility],non-owned Affiliates and Associated Physician Practices is amultiple site organization consisting of ambulatory clinics and hospital sitesin [place], [place], [place] and [place]. This disclosure is being madepursuant to the Care Everywhere program and may not contain all information available regarding this patient. Last updated 18.[facility] Allergies No known active allergies Medications * Be aware that medications may not be up to date on this document. Alwaysverify current medications with the patient. fluticasone-liz meterol (ADVAIR) 250-50 MCG/DOSE inhalerIndicati ons:Asthma Inhale 1 (one) puff by mouth 2 times daily Reasons: Asthma Active ondansetron (ZOFRAN) 4 MG tablet Take 1 Tab by mouth every 4 hours as needed for Nausea/Vomitin g. 20 Tab 0 3 Active alendronate (Fosamax) 70 MG tablet Take 1 (one) tablet by mouth every 7 days before meal Take in morning with full glass of water on empty stomach and remain upright for 30 min Active atorvastatin (Lipitor) 10 MG tablet Take 1 (one) tablet by mouth at bedtime Active vitamin D3 (Cholecalcifero l) 25 MCG (1000 UNITS) tablet Take 1 (one) tablet by mouth once daily Active cyclobenzaprine (Flexeril) 10 MG tablet Take 1 (one) tablet by mouth 3 times daily as needed for Muscle Spasms Active glipiZIDE (Glucotrol) 10 MG tablet Take 1 (one) tablet by mouth daily before breakfast Active lisinopril (Prinivil; Zestril) 10 MG tablet Take 1 (one) tablet by mouth once daily Active metFORMIN (Glucophage) 1000 MG tablet Take 1 (one) tablet by mouth 2 times daily with morning and evening meal Active pantoprazole EC (Protonix) 40 MG tablet Take 1 (one) tablet by mouth once daily Active Venlafaxine HCl (venlafaxine ER 24hr) 150 MG tablet Take 1 (one) tablet by mouth daily with breakfast Active Active Problems Problem Noted Date Diagnosed Date Hepatic cirrhosis 01/27/2023 Resolved Problems Problem Noted Date Diagnosed Date Resolved Date Abdominal pain, acute 03/14/20132022 Family History Medical History Relation Name Comments Diabetes; unknown type Brother CAD (Coronary Artery Disease) Father Heart Failure Father Hyperlipidemia Father Arthritis - Rheumatoid Mother Diabetes; unknown type Sister Other - Hepatic/Liver Neg Hx Relation Name Status Comments Brother Father Mother Sister Social History Tobacco Use Types Packs/Day Years Used Date Smoking Tobacco: Former Cigarettes 1 50 0 11/14/1972 - 11/14/2022 Smokeless Tobacco: Never Alcohol Use Standard Drinks/Week Comments No 0 (1 standard drink = 0.6 oz pur e alcohol) Comments Unknown Sex and Gender Information Value Date Recorded Sex Assigned at Not on file Legal 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 Gender Identity Not on file Sexual Orientation Not on file Last Filed Vital Signs Vital Sign Reading Time Taken Comments Blood Pressure 133/76 01/27/2023 9:42 AM CDT Pulse 110 01/27/2023 9:42 AM CDT Temperature 36.9 C (98.4 F) 03/15/2013 2:43 PM CDT Respiratory Rate 24 01/27/2023 9:42 AM CDT Oxygen Saturation 92% 01/27/2023 9:42 AM CDT Inhaled Oxygen Concentration - - Weight 84.8 kg (187 lb) 01/27/2023 9:42 AM CDT Height 162.6 cm (5' 4 ) 01/27/2023 9:42 AM CDT Body Mass Index 32.1 01/27/2023 9:42 AM CDT Plan of Treatment Health Maintenance Due Date Last Done Comments BONE DENSITY TESTING 1950 COLOGUARD (AGES 45-75) - COL ON CA SCREENING 1950 COLON MONITORING 1950 COLONOSCOPY - COLON CA SCREENING 1950 CT COLONOGRAPHY - COLON CA SCREENING 1950 Colorectal Cancer Screening 1950 FIT - COLON CA SCREENING 1950 FLEX SIG - COLON CA SCREENING 1950 MAMMOGRAM 1950 HEPATITIS C SCREENING 02/17/1968 DTAP/TDAP/TD VACCINES (1 - Tdap) 1969 PNEUMOCOCCAL VACCINE 50+ (1 of 2 - PCV) 1969 LUNG CANCER SCREENING 02/22/2000 ZOSTER VACCINE (1 of 2) 02/22/2000 HEPATITIS B VACCINE (1 of 3 - Risk 3-dose series) 2010 Respiratory Syncytial Virus (RSV) Vaccine Pt: or over 60 yrs (1 - Risk 60-74 years 1-dose series) 2010 COVID-19 VACCINE (1 - 2023-2 5 season) 2024 DEPRESSION SCREENING 10/17/2024 MEDICARE AWV CALENDAR YEAR 2024 INFLUENZA VACCINE (Season Ended) 2025 HIB VACCINE Aged Out No longer eligi ble based on patient's age to complete this topic HPV VACCINE Aged Out No longer eligi ble based on patient's age to complete this topic MENINGOCOCCAL (Group B) VACC INE SHARED DECISION-MAKING Aged Out No longer eligibl e based on patient's age to complete this topic MENINGOCOCCAL GROUPS A/C/Y/W VACCINE Aged Out No longer eligible b ased on patient's age to complete this topic Insurance MEDICARE [employer] MANAGED MEDICARE ADV [facility] MANAGED MEDICARE ADV Advance Directives Documents on File Type Date Recorded Patient Veneer Stapler Expl anation Adv Directive/Living Will/POA 03/16/2013 5:06 PM * FULL RESUSCITATION (Latest Code Status on File) Date Activated Date Inactivated Comments 03/14/2013 8:14 PM 03/15/2013 4:39 PM Care Teams Recruitment Manager Relationship Specialty Start Date End Date Casandra Reich APRN-MICHAEL [address] [id number] PCP - General Nurse Practitioner 01/27/23
--- OUTSIDE RECORDS SUMMARY | 2025-02-01 10:28 | XMS_ITS | Data Portability ---
Author Organization [facility] Address [address] [place] [address] [place] [address] Assessment No assessment recorded. Plan of Treatment Reminders Order Date Submit Date Provider Last Modified By Organization Details Last Modified Time Details Appointments None recorded. Lab urinalysis , dipstick 2020 021 [facility] [address], [address], [place], [address], 1 11:27:39 Referral None recorded. Procedures None recorded. Surgeries None recorded. Imaging None recorded. Medication Orders Diflucan 150 mg tablet 2022 023 [facility] #[id number], [address], [place], [place], [id number], 3 11:15:43 clobetasol 0.05 % topical ointment 2022 023 [facility] #[id number], [address], [place], [place], [id number], 3 11:14:53 nystatin-t riamcinolo ne 100,000 unit/gram- 0.1 % topical ointment 2020 021 [facility] #21874, [address], [place], [place], [id number], 1 12:28:23 triamcinol one acetonide 0.1 % topical ointment 2020 [facility] #[id number], [address], [place], [place], [id number], 11:29:59 nystatin 100,000 unit/gram topical ointment 2020 021 [facility] #[id number], [address], [place], [place], [id number], 11:29:51 Patient TargetsNo targets recorded. Patient Instructions Encounter Date Encounter Id Patient Instructions Last Modified By Organization Details Last Modified Time 12/22/2020 [id number] [email or web address] Not available 11:29:59 Reason for Referral None Reported. Results Created Date Observation Date Name Description Value Unit Range Abnormal Flag Note LastModifiedBy Organization Detail LastModifiedTime 12/23/1912/22/2020 [facility] surgical pathology ([facility]) SEE RESULT S BELOW CASE REPOR T: Surgi royal Patho logy Repor t Case: [id number] Autho evens gillespie Provi theo: Tim Francis Colle cted: 12/22 1312 [address] [place] Order ing Locat ion: [place] Patho log[facility] Recei emmy: 12/23 0528 Patho logis t: Meredith Mcghee MD Speci men: Vulva , Vulva r Biops y FINAL DIAGN OSIS: Vulva , biops y: -Lich en scler osis No squam ous dyspl bertha is ident ified . Hank gallardo by Meredith Mcghee MD on at 4:05 PM ----- ----- ----- ----- ----- ----- ----- ----- ----- ----- ----- ----- ----- ----- ----- ----- ----- ----- - CLINI ROYAL INFOR MATIO N: NOT PROVI DED MICRO SCOPI C DESCR IPTIO N: A micro scopi c exami natio n was perfo rmed. GROSS DESCR IPTIO N: A. Vulva . The speci men is label ed with the patie nt's name, demog cherelle cs and vulv ar biops y . Recei emmy in forma love is a punch of white skin measu ring 0.[address] and is excis ed to a depth of 0.2 cm. The speci men is bisec michoacano and is submi tted all in 1 casse tte. Gross ed by Mady Pope on Not Available [facility] (Lab) [id number] [facility], [place], [address], 12/23/2020 17:07:59 05/25/20 23 05/25/2023 [facility] surgical pathology SEE RESULT S BELOW CASE REPOR T: Surgi royal Patho logy Repor t Case: [id number] Autho evens gillespie Provi theo: Tim Francis Colle cted: 05/25 1327 [address] [place] Order ing Locat ion: [place] Patho logy Recei emmy: 05/26 0126 Patho logis t: Nick Mata rd, MD Speci mens: A) - Vulva , Vulva r B) - Vulva , Vulva r FINAL DIAGN OSIS: A. Vulva , biops y: -Supe rfici al detac hed fragm ents of gabrielle ct ortho kerat otic scale -No under lying epith elium seen. -PAS fungu s stain is negat ming for funga l organ isms. -HSV stain is negat ming B. Vulva , biops y: -Lich en scler osus. -No evide nce of dyspl bertha or carci noma Elect rondeja buckley ernst d by Nick Mata rd, MD on 2022 at 9:48 AM ----- ----- ----- ----- ----- ----- ----- ----- ----- ----- ----- ----- ----- ----- ----- ----- ----- ---- CLINI ROYAL INFOR GWEN N: n90.8 9 MICRO SCOPI C DESCR IPTIO N: A micro scopi c exami natio n was perfo rmed. This test was devel oped and its perfo rmanc e du cteri stics deter mined by [facility]. It has not been clear ed or appro emmy by the U. S. Food and Drug Admin istra tion. The FDA has deter mined that such clear ance or appro janene is not neces tamara. This test may be used for clini royal purpo se. It shoul d not be regar ded as inves tigat ional or for resea rch. This labor atory is certi fied under the Clini royal Labor atory Impro vemen t Amend ments of 1987 (CLIA ) as quali fied to perfo rm high compl exity clini royal labor atory testi ng. In cases which have decal cifie d tissu es, the resul ts shoul d be inter prete d with cauti on given the possi bilit y of false negat barrett. The posit ming contr ols demon strat e appro priat e posit ming stain ing. The known tissu e negat ming contr ols are negat ming. The non-i mmune serum contr ol was non-r eacti ve. GROSS DESCR IPTIO N: A. Vulva . The speci men is recei emmy in forma love label ed with the patie nt's name, demog raphi cs, and vulv ar biops y . It consi sts of multi ple roberts soft tissu e fragm ents measu ring 0.6 x 0.3 x 0.[address]. The speci men is submi tted entir ilana in casse tte A1. Gross ed by Melecio Meléndez Vulva . The speci men is recei emmy in forma love label ed with the patie nt's name, demog cherelle cs, and vulv ar BX . It consi sts of a roberts skin fragm ent measu ring 0.4 cm in [facility] dio. The speci men is submi tted entir ilana and intac t in casse tte B1. Gross ed by Melecio Cruz Not Available [facility] (Lab) [address], [place], [address], 05/27/2023 10:52:59 Result Notes None recorded. Problems Name Problem SNOMED Code Status Onset Date Resolution Date Notes Provider Name and Address Organization Details Recorded Time Screening for malignant neoplasm of rectum Active 2017 Encounter for screening for malignant neoplasm of rectum;Rec orded Elsewhere: No Locatio n: [facility] rce: EHR Chroni c: N Practice ID: 0001 Billa ble Time: 01:00:00 PM Not Available [facility] 0 21:23:48 Depressiv e disorder [id number] Active 2016 Depression NOS;Record ed Elsewhere: No Locatio n: [facility] rce: EHR Chroni c: N Practice ID: 0001 Billa ble Time: 10:00:00 AM Not Available [facility] 0 21:23:[address] Concept Active 2017 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) (routine) w/o abn findings;R ecorded Elsewhere: No Locatio n: [facility] rce: EHR Chroni c: N Practice ID: 0001 Billa ble Time: 01:00:00 PM Not Available [facility] 0 21:23:48 Vaginolab ial hernia Active 2016 disorder or lesion vulva;Rudy rded Elsewhere: No Locatio n: [facility] rce: EHR Chroni c: N Practice ID: 0001 Billa ble Time: 10:00:00 AM Not Available [facility] 0 21:23:48 Body mass index 30+ - obesity 973355418 Active 2017 Body mass index (BMI) 32.0-32.9, adult;Rudy rded Elsewhere: No Locatio n: [facility] rce: EHR Chroni c: N Practice ID: 0001 Billa ble Time: 02:00:00 PM Not Available [facility] 0 21:23:48 Screening for malignant neoplasm of cervix Active 2017 Encounter for screening for malignant neoplasm of cervix;Rec orded Elsewhere: No Locatio n: [facility] rce: EHR Chroni c: N Practice ID: 0001 Billa ble Time: 02:00:00 PM Not [facility] 0 21:23:48 Lichen sclerosus et atrophicu s Active 2016 Lichen sclerosus et atrophicus ;Recorded Elsewhere: No Locatio n: [facility] rce: EHR Chroni c: N Practice ID: 0001 Billa ble Time: 10:00:00 AM Not Available [facility] 0 21:23:48 Blood leukocyte number above reference range 938737399 Active 2017 Elevated white blood cell count, unspecifie d;Recorded Elsewhere: No Locatio n: [facility] rce: EHR Chroni c: N Practice ID: 0001 Billa ble Time: 02:00:00 PM Not Available [facility] 0 21:23:49 Benign neoplasm of vulva 61021280 Active 2016 Benign neoplasm of vulva;Rudy rded Elsewhere: No Locatio n: [facility] rce: EHR Chroni c: N Practice ID: 0001 Billa ble Time: 03:00:00 PM Not Available [facility] 0 21:23:49 Leukoplak ia of vulva 243985325 Active 2016 Leukoplaki a of vulva;Prac mariana ID: 0001 Not Available [facility] 0 21:23:49 Finding of urine substance level Active 2017 Proteinuri a, unspecifie d;Practice ID: 0001 Not Available [facility] 0 21:23:49 Problem Notes None recorded. Procedures Surgical History Date Name Laterality Status Provider Name and Address Organization Details Recorded Time 023 Vulvar Biopsy completed MARGARITA Ornelas-PARTH [address], [place], [address], [facility] 06/15/2023 16:20:51 021 Vulvar Biopsy completed Rosio Hogan, [facility] [address], [place], [address], [facility] 12/22/2020 11:28:02 019 procedure on hand completed [facility] 01/14/2021 16:38:23 017 biopsy of vulva completed [facility] 01/14/2021 16:41:18 001 Breast reduction completed [facility] 01/14/2021 16:38:09 990 Total Hysterectomy completed [facility] 01/14/2021 16:38:37 985 procedure on neck completed [facility] 01/14/2021 16:38:31 975 Cholecystectomy completed [facility] 01/14/2021 16:38:15 Imaging Results None recorded. Procedure Notes None recorded. Medical Equipment None Reported. Allergies No known drug allergies Medications Name Sig Start Date Stop Date Status Note LastModified by Organization Details LastModified Time cyclobenz aprine 10 mg tablet TAKE 1 TABLET BY MOUTH TWICE DAILY NEEDED FOR MUSCLE SPASM active Not Available Not Available No t Available atorvasta tin 10 mg tablet TAKE 1 TABLET BY MOUTH AT BEDTIME active Not Available Not Available No t Available nystatin 100,000 unit/gram topical ointment APPLY EXTERNAL LY TO THE AFFECTED AREA THREE TIMES DAILY FOR 2 WEEKS active Not Available Not Available No t Available fluconazo le 200 mg tablet TAKE 1 TABLET BY MOUTH ONCE active Not Available Not Available No t Available glipizide 10 mg tablet TAKE 1 TABLET BY MOUTH DAILY active Not Available Not Available No t Available alendrona te 70 mg tablet TAKE 1 TABLET BY MOUTH WEEKLY active Not Available Not Available No t Available clobetaso l 0.05 % topical cream apply by topical route 2 times every day a thin layer to the affected area(s) 06/14 completed Prescrib ed Elsewher e: No Locat ion: Jeannette roberts [facility] odify By: loli reid DateTime : 06/12/20 18 02:00:00 PM Not Available Not Available Not Available Diflucan 150 mg tablet Take 1 tablet every day by oral route as directed for 1 day. 2022 active Not Available Not Available Not Avai lable venlafaxi ne ER 150 mg capsule,e xtended release 24 hr TAKE 1 CAPSULE BY MOUTH AT BEDTIME active Not Available Not Available No t Available Wellbutri n SR 150 mg tablet, 12 hr sustained -release TAKE 1 TABLET BY ORAL ROUTE 3 TIMES EVERY DAY 2017 active Prescrib ed Elsewher e: No Locat ion: Jeannette roberts [facility] odify By: libby De Leonte r DateTime : 01/07/20 18 01:51:55 PM Not Available Not Available Not Available nystatin- triamcino lone 100,000 unit/gram -0.1 % topical ointment APPLY TO THE AFFECTED AREA(S) BY TOPICAL ROUTE 2 TIMES PER DAY x 3mos. May dispense medicati ons separate ly if not covered mixed by insuranc e. 2020 active Not Available Not Available Not Avai lable Metrogel Vaginal 0.75 % (37.5 mg/5 gram) insert 1 applicat orful by vaginal route every day at bedtime for 5 nights 12/22 completed Prescrib ed Elsewher e: No Locat ion: Jeannette roberts [facility] odify By: loli reid DateTime : 06/16/20 18 12:30:21 PM Not Available Not Available Not Available omeprazol e 10 mg capsule,d elayed release take 2 capsule by oral route every day before a meal 2016 active Prescrib ed Elsewher e: Yes Loca tion: Jeannette roberts [facility] odify By: ady garrett DateTime : 10/22/19 17 03:15:00 PM Not Available Not Available Not Available pantopraz ole 40 mg tablet,de layed release TAKE 1 TABLET BY MOUTH EVERY MORNING active Not Available Not Available No t Available metformin 1,000 mg tablet TK 1 T PO BID active Not Available Not Available No t Available triamcino lone acetonide 0.1 % topical ointment APPLY THIN LAYER TOPICALL Y TO THE AFFECTED AREA THREE TIMES DAILY FOR 2 WEEKS active Not Available Not Available No t Available lisinopri l 10 mg tablet TAKE 1 TABLET BY MOUTH DAILY active Not Available Not Available No t Available betametha sone dipropion ate 0.05 % topical cream apply by topical route every day a thin layer to the vaginal area 01/14 completed Prescrib ed Elsewher e: No [facility]at [facility] By: loli De Leon ter DateTime : 06/14/20 18 09:36:29 AM Not Available Not Available Not Available morphine ER 15 mg tablet,ex tended release take 1 tablet by oral route every 12 hours 06/12 completed Prescrib ed Elsewher e: Yes [facility] By: cmschtess z Moises ter DateTime : 10/22/19 17 03:15:00 PM Not Available Not Available Not Available clobetaso l 0.05 % topical ointment APPLY THIN LAYER TOPICALL Y TO THE AFFECTED AREA TWICE DAILY NEEDED active Not Available Not Available No t Available methylpre dnisolone 4 mg tablets in a dose pack TAKE BY MOUTH DIRECTED ON INSIDE OF PACKAGE active Not Available Not Available No t Available fluticaso ne propionat e 50 mcg/actua tion nasal spray,vijay pension SHAKE LIQUID AND USE 2 SPRAYS IN EACH NOSTRIL EVERY DAY active Not Available Not Available No t Available glipizide 5 mg tablet TAKE 1 TABLET BY MOUTH DAILY active Not Available Not Available No t Available Ventolin HFA 90 mcg/actua tion aerosol inhaler inhale 2 puff by inhalati on route every 4 - 6 hours as needed 2016 active Prescrib ed Elsewher e: Yes Loca tion: [facility] odify By: ady garrett DateTime : 10/22/19 17 03:15:00 PM Not Available Not Available Not Available lactulose 10 gram/15 mL oral solution active Not Available Not Available Not Available varenicli ne tartrate 1 mg tablet TAKE 1 TABLET BY MOUTH TWICE DAILY active Not Available Not Available No t Available varenicli ne tartrate 0.5 mg (11)-1 mg (42) tablets in a dose pack FOLLOW PACKAGE DIRECTIO NS. active Not Available Not Available No t Available metformin ER 500 mg 24 hr tablet,ex tended release (gastric retention ) take 2 tablet by oral route 2 times every day with meals 01/24 completed Prescrib ed Elsewher e: Yes Loca tion: [facility] odify By: smcirisy Cordell sargent DateTime : 10/22/19 17 03:15:00 PM Not Available Not Available Not Available Symbicort 160 mcg-4.5 mcg/actua tion HFA aerosol inhaler INHALE 2 PUFFS BY MOUTH EVERY 12 HOURS active Not Available Not Available No t Available cholecalc iferol (vitamin D3) 1,250 mcg (50,000 unit) capsule TAKE 1 CAPSULE BY MOUTH ONCE A WEEK FOR 8 WEEKS THEN START VITAMIN D 2000 ONCE DAILY active Not Available Not Available No t Available venlafaxi ne ER 150 mg tablet,ex tended release 24 hr take 1 tablet by oral route every day in the morning at the same time each day with food 2016 active Prescrib ed Elsewher e: Yes Loca tion: [facility] odify By: amethan Roberts [email or web address] DateTime : 10/22/19 17 03:15:00 PM Not Available Not Available Not Available OneTouch Verio test strips USE TO TEST BLOOD SUGAR ONCE DAILY active Not Available Not Available No t Available Trulicity 0.75 mg/0.5 mL subcutane ous pen injector ADMINIST ER 0.75 MG UNDER THE SKIN WEEKLY active Not Available Not Available No t Available Spiriva Respimat 2.5 mcg/actua tion solution for inhalatio n INHALE 2 PUFFS BY MOUTH EVERY MORNING active Not Available Not Available No t Available Stiolto Respimat 2.5 mcg-2.5 mcg/actua tion solution for inhalatio n inhale 2 puff by inhalati on route every day at the same time each day 2016 active Prescrib ed Elsewher e: Yes [facility] By: amkuhl E ncounter DateTime : 10/22/19 17 03:15:00 PM Not Available Not Available Not Available OneTouch Verio Flex Meter USE TO TEST BLOOD SUGAR ONCE DAILY active Not Available Not Available No t Available Paxlovid 300 mg (150 mg x 2)-100 mg tablets in a dose pack TK 2 NIRMATRE LVIR TS AND 1 RITONAVI R T TOGETHER PO BID FOR 5 DAYS active Not Available Not Available No t Available Vitals Date Recorded Body height Body mass index (BMI) Body weight Systolic blood pressure Diastolic blood pressure Provider Name and Address Organization Details Last Updated DateTime 12/22/2020 160.02 cm 31.4 kg/m2 70545.85 g 167 mm[Hg] 76 mm[Hg] Larissa Alarcon [facility] 1 10:41:14 Date Recorded Body height Body mass index (BMI) Body weight Systolic blood pressure Diastolic blood pressure Provider Name and Address Organization Details Last Updated DateTime 01/14/2021 160.02 cm 31.2 kg/m2 21776.26 g 144 mm[Hg] 71 mm[Hg] Vicky Cormier [facility] 1 12:12:49 Date Recorded Body height Body mass index (BMI) Body weight Systolic blood pressure Diastolic blood pressure Provider Name and Address Organization Details Last Updated DateTime 05/25/2023 160.02 cm 31.5 kg/m2 19121.44 g 145 mm[Hg] 69 mm[Hg] Esperanza Mejía [facility] 3 11:07:01 Social History Question Answer Notes LastModified by Organizat ion Details LastModified Time Tobacco Smoking Status Current Every Day Smoker Vicky Cormier [facility] 01/14/2021 16:37:39 What Is Your Level Of Alcohol Consumption? Occasional [email or web address] Information not available 01/14/2021 Are You Blind Or Do You Have Difficulty Seeing? No [email or web address] Information not available 01/14/2021 What Is Your Level Of Caffeine Consumption? Moderate [email or web address] Information not available 01/14/2021 In The 14 Days Before Symptom Onset, Have You Had Close Contact With A Laboratory-confir med COVID-19 While That Case Was Ill? No [email or web address] Information not available 01/14/2021 In The 14 Days Before Symptom Onset, Have You Had Close Contact With A Person Who Is Under Investigation For COVID-19 While That Person Was Ill? No [email or web address] Information not available 01/14/2021 Have You Been To An Area Known To Be High Risk For COVID-19? No [email or web address] Information not available 01/14/2021 Are You Deaf Or Do You Have Serious Difficulty Hearing? No [email or web address] Information not available 01/14/2021 What Type Of Diet Are You Following? REGULAR [email or web address] Information not available 01/14/2021 Have You Ever Been Counseled For Unhealthy Alcohol Use? No [email or web address] Information not available 01/14/2021 Do You Use Your Seat Belt Or Car Seat Routinely? Yes [email or web address] Information not available 01/14/2021 Do You Have Smoke And Carbon Monoxide Detectors In Your Home? Yes [email or web address] Information not available 01/14/2021 Do You Feel Stressed (tense, Restless, Nervous, Or Anxious, Or Unable To Sleep At Night)? [id number] [email or web address] Information not available 01/14/2021 Do You Use Any Illicit Or Recreational Drugs? No [email or web address] Information not available 01/14/2021 Do You Use Sunscreen Routinely? Yes [email or web address] Information not available 01/14/2021 Has Tobacco Cessation Counseling Been Provided? No [email or web address] Information not available 01/14/2021 Do You Or Have You Ever Used Any Other Forms Of Tobacco Or Nicotine? No Information not available 01/14/2021 Sex: Unknown Functional Status Question Answer Note LastModified by Organization D etails LastModified Time Are you able to walk? YESWOREST [email or web address] Information not available 01/14/2021 What is your exercise level? Moderate [email or web address] Information not available 01/14/2021 Mental Status None recorded. Family History Relationship Description Onset Age of this Age Resolved Age Notes LastModified by Organization Details LastModified Time Father Disorder of cardiovascul ar system [email or web address] Not available 2020 10:16:18 Father Hypertensive disorder [email or web address] Not available 2020 10:16:24 Notes:Father: Hypertension, Cardiovascular disease Medical History Condition Response Anxiety Disorder Y Diabetes Y Breast Problem Y Other Y Acid Reflux (GERD) Y Asthma Y Depression/ depression Y Gynecological History Statement/Question Response If Post Menopausal, Age at Menopause Date of LMP 10/17/1989 STIs/STDs N Date of Last Pap Smear Sexual Problems? N Current Control Method Hysterectom y Desired Control Method Hysterectom y LMP Approximate Obstetrics History GPAL:G 4 P 4 0 0 0 Type Value Full Term 4 Total 4 Past Encounters Encounter ID Performer Location Encounter Start Date Encounter Closed Date Diagnosis/Indication Diagnosis SNOMED-CT Code Diagnosis ICD10 Code Diagnosis Note [id number] Rosio Hogan [facility] [address] [address] 12/22/2020 10:26:17 12/22/2020 13:21:42 Urinary tract infectious disease 05050028 N39.0 Will sent for evaluation . Has health issues. PCP aware. Atrophic vaginitis 95902 000 N95.2 Hx of LS per pt report but nothing on file to confirm this diagnosis. Vulvar bx done today Will return for results Opt to start treatment now. Counseled on treatment and medication . Time spent in visit is a total of 15 mins with at least 50% of visit consisting of counseling and review of plan of care NOT including time spent on this procedure. . [id number] [facility] [address] [address] 01/14/2021 11:50:12 01/14/2021 16:21:38 Genital lichen sclerosus 621454939 L90.0 LS bx discussed. tissues looking much improved and patient reports significan tly less itching/te nderness in this area. We agreed to further continue her regimen for 3mos then f/u on her progress. She still has some areas that look raw on exam. We discussed that I expect those to improve over the next 3mos & if not improved consider seeing specialist for further management . Encouraged smoking cessation. Time spent in visit is a total of 15 mins with at least 50% of visit consisting of counseling and review of plan of care. Additional precaution rick measures were taken to minimize potential exposure to the Covid-19 virus during this patient s visit, including available hand clothing man upon arrive, temperatur e check and being asked a series of screening questions. All staff wore face coverings during this encounter, as well as provided additional cleaning and sanitizing of all surfaces, including countertop s, pens, chairs, door handles, light switches, etc, prior to and following the patient s visit. [id number] Rosio Hogan , [facility] [address] [address] 05/25/2023 10:51:28 05/26/2023 16:34:19 Genital lichen sclerosus 415425429 L90.0 Referral might be necessary for severe case to [facility] vulvar specialist .Will await return of results to determine if needs Vulvar specialist s or MANAGER [employer]C. Does not follow Vulvar guidelines Instructed to start ointment and rto x 8wks for exam Time spent in visit is a total of 30 mins with at least 50% of visit consisting of counseling and review of plan of care. Lesion of vulva 69855036 6 N90.89 Bx sent of two areas that are suspicious for precancers /cancers on exam.Lorie levy has a confirmed diagnosis of LS on file with Bx. Bx left upper inner labia majoraBx inner left adjacent first bx labia majora. Vaginitis 39008797 N76.0 Questionab le yeast on exam externally . Health Concerns Section Related Observation LastModified by Organization Detai ls LastModified Time None Recorded Concern Status LastModified by Organization Details LastModified Time None Recorded Advance Directives Directive None Recorded Payers Encounter Date Sequence Insurance Name Policy Number Policy Giraldo Covered Member ID Giraldo Member ID Guarantor Name 12/22/2020 1 [place]ID-[place]: [facility] [place] [id number] Ro [place] 12/22/2020 1 MEDICARE-[place] (MEDICARE) Ro [place] [id number] Ro [place] 01/14/2021 1 MED[place]: [facility] Ro [place] [id number] [place] 01/14/2021 1 [place] [id number] [place] 05/25/2023 1 [facility] (MEDICARE REPLACEMENT/A DVANTAGE - HMO) [id number] [place] [id number] [place] 05/25/2023 2 MED[place]: [facility] [place] [id number] [place] Notes Date Note Type Note Provider Name and Address Organization Details Recorded Time 12/22/2020 text/html Here for signfic ant vaginal itching, discoloration and sores. Has had vaginal itching for years. Reports she has been diagnosed with LS years before this. Was unable to keep up on ointment previously used stating my insurance wouldn't pay for it. She is not SA for years. Now feels excessive ext itching has gotten even worse the last 2mos. Here for evaulation and treatment of this issue. Extensive health [facility]. [facility] [address], [place], [address], [facility] 12/22/2020 11:31:20 01/14/2021 text/html Here for medicat ion check of mycolog ointment for LS. [facility] [address], [place], [address], [facility] 01/14/2021 12:32:22 05/25/2023 text/html Ro is a 73yo postmenopausal female with a Hx of LS that has returned today for chronic profuse itching and discoloration of vulva.She voices that she has not been using the steroid ointment regularly and not following VCG's. She has issues with incontinence that requires daily peripad use.She has dm2 and blood sugars are not always well controlled. Neg pain of abd/pelvis/flankNeg urinary sx'sNeg GI sx'sNeg N/V/F/C/D+ Vag itching & irritationNot SA for >20yrs MARGARITA Ornelas- [address], [place], [address], [facility] 06/15/2023 16:22:20 OBGyn Episode Ob Episode Information Episode Created Date Number of Fetuses Patient Bloodtype Patient rh Status Prepregnancy Weight lbs Domestic Partner Domestic Partner Phone Father Name Face Painter Status 12/23/19 21 1 DELETED Kevyn Calculation Initial Kevyn Date Initial Exam Date Initial Exam Provider Initial Ultrasound Date Last Menstrual Period Date Ultra Sound Weeks Gestation 0 Eighteen To Twenty Week Kevyn Update Ultra Sound Date Fundal Height At Umbil Quickening Date Ultra Sound Latest Weeks Gestation Final Kevyn Confirmed By Final Kevyn Confirmed Date Final Kevyn Date Ultra Sound Latest Days Gestation 0 0 Menstrual History Last Menstrual Date Menses Monthly On Bcp Conception Prior Menses Frequency Hcg Plus Date Menarche Onset Age Delivery Information Delivery Date Delivery Type Labor Anesthesia Weeks Gestation Incision Type Labor Labor Length Hrs Delivered By Post Complications Tubal Sterilization Discharge Date Comments 7 Discharge Information Feeding Method Contraceptive Method Maternal HG B and HCT Levels Ob Episode Information Episode Created Date Number of Fetuses Patient Bloodtype Patient rh Status Prepregnancy Weight lbs Domestic Partner Domestic Partner Phone Father Name Face Painter Status 12/23/19 21 1 CLOSED Fetus Data First Name Last Name Admitted to NICU Weight (g) Sex Living Outcome Pediatric Complications Fetus ID Race Codes Race Delivery Type 2976.47 0704 F Full Term 8331 Vaginal Delivery Kevyn Calculation Initial Kevyn Date Initial Exam Date Initial Exam Provider Initial Ultrasound Date Last Menstrual Period Date Ultra Sound Weeks Gestation 0 Eighteen To Twenty Week Kevyn Update Ultra Sound Date Fundal Height At Umbil Quickening Date Ultra Sound Latest Weeks Gestation Final Kevyn Confirmed By Final Kevyn Confirmed Date Final Kevyn Date Ultra Sound Latest Days Gestation 0 0 Menstrual History Last Menstrual Date Menses Monthly On Bcp Conception Prior Menses Frequency Hcg Plus Date Menarche Onset Age Delivery Information Delivery Date Delivery Type Labor Anesthesia Weeks Gestation Incision Type Labor Labor Length Hrs Delivered By Post Complications Tubal Sterilization Discharge Date Comments 0 40 Discharge Information Feeding Method Contraceptive Method Maternal HG B and HCT Levels Ob Episode Information Episode Created Date Number of Fetuses Patient Bloodtype Patient rh Status Prepregnancy Weight lbs Domestic Partner Domestic Partner Phone Father Name Face Painter Status 12/23/19 21 1 CLOSED Fetus Data First Name Last Name Admitted to NICU Weight (g) Sex Living Outcome Pediatric Complications Fetus ID Race Codes Race Delivery Type 4365.82 3 F Full Term 8330 Vaginal Delivery Kevyn Calculation Initial Kevyn Date Initial Exam Date Initial Exam Provider Initial Ultrasound Date Last Menstrual Period Date Ultra Sound Weeks Gestation 0 Eighteen To Twenty Week Kevyn Update Ultra Sound Date Fundal Height At Umbil Quickening Date Ultra Sound Latest Weeks Gestation Final Kevyn Confirmed By Final Kevyn Confirmed Date Final Kevyn Date Ultra Sound Latest Days Gestation 0 0 Menstrual History Last Menstrual Date Menses Monthly On Bcp Conception Prior Menses Frequency Hcg Plus Date Menarche Onset Age Delivery Information Delivery Date Delivery Type Labor Anesthesia Weeks Gestation Incision Type Labor Labor Length Hrs Delivered By Post Complications Tubal Sterilization Discharge Date Comments 5 40 Discharge Information Feeding Method Contraceptive Method Maternal HG B and HCT Levels Ob Episode Information Episode Created Date Number of Fetuses Patient Bloodtype Patient rh Status Prepregnancy Weight lbs Domestic Partner Domestic Partner Phone Father Name Face Painter Status 12/23/19 21 2 CLOSED Fetus Data First Name Last Name Admitted to NICU Weight (g) Sex Living Outcome Pediatric Complications Fetus ID Race Codes Race Delivery Type 2324.65 9 F Full Term 8328 Primary 2097.86 3 F Full Term 8724 Vaginal Delivery Kevyn Calculation Initial Kevyn Date Initial Exam Date Initial Exam Provider Initial Ultrasound Date Last Menstrual Period Date Ultra Sound Weeks Gestation 0 Eighteen To Twenty Week Kevyn Update Ultra Sound Date Fundal Height At Umbil Quickening Date Ultra Sound Latest Weeks Gestation Final Kevyn Confirmed By Final Kevyn Confirmed Date Final Kevyn Date Ultra Sound Latest Days Gestation 0 0 Menstrual History Last Menstrual Date Menses Monthly On Bcp Conception Prior Menses Frequency Hcg Plus Date Menarche Onset Age Delivery Information Delivery Date Delivery Type Labor Anesthesia Weeks Gestation Incision Type Labor Labor Length Hrs Delivered By Post Complications Tubal Sterilization Discharge Date Comments 7 40 Discharge Information Feeding Method Contraceptive Method Maternal HG B and HCT Levels
--- OUTSIDE RECORDS SUMMARY | 2025-02-01 10:29 | XMS_ITS | Referral Summary ---
Author Organization [facility] [address] Address [address] [place] [address] Care Team Providers Care Tomography Technologist Name Role Phone Avery You DO Primary Care Provider +1- [phone] Allergies No known active allergies Medications atorvastatin (LIPITOR) 10 mg tablet Take 10 mg by mouth daily 01/19/20 21 Active lisinopriL (PRINIVIL,ZEST RIL) 10 mg tablet Take 10 mg by mouth daily 02/23/20 21 Active venlafaxine XR (EFFEXOR-XR) 150 mg 24 hr capsule Take 150 mg by mouth daily 01/19/20 21 Active cholecalcifero l (VITAMIN D-3) 50,000 unit capsule cholecalciferol (vitamin D3) 1,250 mcg (50,000 unit) capsule TAKE 1 CAPSULE BY MOUTH ONCE A WEEK FOR 8 WEEKS THEN START VITAMIN D 2000 ONCE DAILY Active fluticasone propionate (FLONASE) 50 mcg/actuation nasal spray fluticasone propionate 50 mcg/actuation nasal spray,suspension Active Spiriva Respimat 2.5 mcg/actuation inhaler INHALE 2 PUFFS BY MOUTH DAILY 02/10/20 21 Active Trulicity 0.75 mg/0.5 mL pen injector ADMINISTER 0.75 MG UNDER THE SKIN WEEKLY 02/11/20 21 Active alendronate (FOSAMAX) 70 mg tablet alendronate 70 mg tablet TAKE 1 TABLET BY MOUTH WEEKLY Active vitamin E (AQUASOL E) 1,000 unit capsule Take 1,000 Units by mouth daily Active Active Problems No known active problems Social History Tobacco Use Types Packs/Day Years Used Date Smoking Tobacco: Every Day Smokeless Tobacco: Never Personal Safety Answer Date Recorded Getting School Help Needed Not on file 09/30 Comments Unknown Sex and Gender Information Value Date Recorded Sex Assigned at Not on file 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 Gender Identity Not on file Sexual Orientation Not on file Last Filed Vital Signs Vital Sign Reading Time Taken Comments Blood Pressure 117/63 02/24/2021 10:02 AM CDT Pulse 111 02/24/2021 10:02 AM CDT Temperature 36 C (96.8 F) 02/24/2021 10:02 AM CDT Respiratory Rate - - Oxygen Saturation 90% 02/24/2021 10:02 AM CDT Inhaled Oxygen Concentration - - Weight 77.4 kg (170 lb 9.6 oz) 02/24/2021 10:02 AM CDT Height 160 cm (5' 3 ) 02/24/2021 10:02 AM CDT Body Mass Index 30.22 02/24/2021 10:02 AM CDT Plan of Treatment Not on file Insurance MEDICARE IDPA [facility] HMO REF [facility]IC[facility] Address: [address] [address] [place] [id number] HMO REF [facility]ICAL [facility] MEDICARE Address: [phone] [place] [address] Care Teams Tomography Technologist Relationship Specialty Start Date End Date Avery You DO PCP - General Internal Medicine 07/17/17
--- OUTSIDE RECORDS SUMMARY | 2025-02-01 10:29 | XMS_ITS | Clinical Summary ---
Author Organization [facility] [address] Address [address] [place] [address] Care Team Providers Care Product Safety Test Engineer Name Role Phone Avery You DO Primary Care Provider +1- [phone] Allergies No known active allergies Medications atorvastatin [...] Active Active Problems No known active problems Surgical History Surgery Date Site/Laterality Comments CHOLECYSTECTOMY HYSTERECTOMY NECK SURGERY Medical History Medical History Date Comments Diabetes mellitus (HCC) Diverticulitis of colon Social History Tobacco Use Types Packs/Day Years Used Date Smoking Tobacco: Every Day Smokeless Tobacco: Never Personal Safety Answer Date Recorded Getting School Help Needed Not on file 09/30 Comments Unknown Sex and Gender Information Value Date Recorded Sex Assigned at Not on file 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 Address: [id number] [place] [address] [facility] MDCR HMO REF [facility] MEDICARE Address: [address] [address] [place] [address] R HMO REF [facility] MEDICARE Address: [address] [address] [place] [address] Care Teams Product Safety Test Engineer Relationship Specialty Start Date End Date Avery You DO PCP - General Internal Medicine 07/17/17
[2025-02-01 13:36] LABS: Alanine Aminotransferase 64 U/L (6-35); Albumin Level 4.5 g/dL (3.5-5.1); Alkaline Phosphatase 177 U/L (38-126); Anion Gap 13 mmol/L (4-12); Aspartate Amino Transferase 91 U/L (14-36); Bilirubin,Total 0.7 mg/dL (0.2-1.3); Blood Urea Nitrogen 8 mg/dL (7-17); Carbon Dioxide 27 mmol/L (22-30); Chloride 96 mmol/L (98-107); Estimated Glomerular Filt Rate > 60; Glucose 226 mg/dL (65-110); Potassium 3.9 mmol/L (3.4-5.0); Sodium 136 mmol/L (137-145)
[2025-02-01 14:14] LABS: Basophils Absolute Auto 0.1 K/mm3 (0.0-0.1); Basophils Percent Auto 0.6 % (0.2-1.2); Eosinophils Absolute Auto 0.2 K/mm3 (0-0.3); Eosinophils Percent Auto 2.3 % (0-4.4); Hematocrit 48.5 % (37.0-47.0); Hemoglobin 14.6 g/dL (12.0-15.0); Immature Granulocyte Absolute 0.03 K/mm3 (0.00-0.031); Immature Granulocyte Percent A 0.3 % (0-0.5); Lymphocytes Absolute Auto 2.89 K/mm3 (0.9-3.2); Lymphocytes Percent Auto 27.6 % (18.3-44.2); Mean Corpuscular HGB Conc 30.1 g/dl (32-36); Mean Corpuscular Hemoglobin 24.9 pg (26-34); Mean Corpuscular Volume 82.6 fl (80-100); Mean Platelet Volume 10.8 fl (7.4-10.4); Monocytes Absolute Auto 0.7 K/mm3 (0.1-0.6); Neutrophils Absolute Auto 6.5 K/mm3 (1.3-6.7); Neutrophils Percent Auto 62.2 % (45.5-73.1); Platelet Count Result 316 k/mm3 (150-375); Red Blood Count 5.87 M/mm3 (4.2-5.4); Red Cell Distribution Width 15.9 % (11.5-14.5); White Blood Count 10.5 K/mm3 (4.5-10.0)
[2025-02-01 14:22] LABS: Creatinine Urine 62.9 mg/dL
[2025-02-01 14:26] LABS: MALB Creatinine Ratio 108.1 mg/g (0-30)
[2025-02-01 14:31] LABS: Hemoglobin A1C 11.7 % (<5.7)
== END 2025-02-01 10:20 | disposition home or self-care (01) ==
LOC: ANHGOSHLAB 10:20
PROVIDERS: PCP Internal Medicine; Visit Provider Nurse Practitioner
DX: E11.9 Type 2 diabetes mellitus without complications (principal); Z79.4 Long term (current) use of insulin
CPT/HCPCS: 36415; 80053; 82043; 83036; 85025

== ENCOUNTER 2025-05-17 11:04 | Outpatient (CLI) | payer MEDICARE, MEDICAID, SELFPAY ==
--- OUTSIDE RECORDS SUMMARY | 2025-05-17 11:08 | XMS_ITS | Clinical Summary ---
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
--- OUTSIDE RECORDS SUMMARY | 2025-05-17 11:08 | XMS_ITS | Referral Summary ---
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
--- OUTSIDE RECORDS SUMMARY | 2025-05-17 11:08 | XMS_ITS | Clinical Summary ---
Author Organization [facility] [employer] Address [address] [place] [address] Care Team Providers Care Oxygraph Operator Name Role Phone Casandra Reich BARBARA-MICHAEL Primary Care Provider +1 -[phone] Source Comments [employer],non-owned Affiliates and Associated Physician Practices is amultiple site organization consisting of ambulatory clinics and hospital sitesin [place], [place], [place] and [place]. This disclosure is being madepursuant to the Care Everywhere program and may not contain all information available regarding this patient. 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 Gender Identity Not on file Sexual Orientation [...] 9:42 AM CDT Height 162.6 cm (5' 4) 01/27/2023 9:42 AM CDT Body Mass Index [...] of 3 - Risk 3-dose series) 2010 COVID-19 VACCINE ( - 2023-2 5 season) 2024 DEPRESSION SCREENING 10/17/2024 MEDICARE AWV CALENDAR YEAR 2024 Respiratory Syncytial Virus (RSV) Vaccine Pt: or over 60 yrs (1 - 1-dose 75+ series) 2025 INFLUENZA VACCINE (#1) 2025 HIB VACCINE Aged Out No longer [...] topic Insurance MEDICARE [employer] MANAGED MEDICARE ADV [facility] MANAGED MEDICARE ADV Advance Directives Documents on File Type Date Recorded Patient Speech And Language Tutor Expl anation Adv Directive/Living Will/POA 03/16/2013 5:06 PM * FULL RESUSCITATION (Latest Code Status on File) Date Activated Date Inactivated Comments 03/14/2013 8:14 PM 03/15/2013 4:39 PM Care Teams Oxygraph Operator Relationship Specialty Start Date End Date Casandra Reich APRN-MICHAEL [address] [address] PCP - General Nurse Practitioner 01/27/23
[2025-05-17 14:44] LABS: Hematocrit 46.4 % (37.0-47.0); Hemoglobin 14.1 g/dL (12.0-15.0); Immature Granulocyte Percent A 0.3 % (0-0.5); Lymphocytes Absolute Auto 2.00 K/mm3 (0.9-3.2); Mean Corpuscular HGB Conc 30.4 g/dl (32-36); Mean Corpuscular Hemoglobin 25.9 pg (26-34); Mean Corpuscular Volume 85.1 fl (80-100); Nucleated Red Blood Cells Absolute Auto 0.000 K/mm3 (0.0-0.012); Nucleated Red Blood Cells Perc 0.0 % (0.0-0.2); Platelet Count Result 304 k/mm3 (150-375); Red Blood Count 5.45 M/mm3 (4.2-5.4); White Blood Count 7.9 K/mm3 (4.5-10.0)
[2025-05-17 15:09] LABS: Hemoglobin A1C 8.2 % (<5.7)
[2025-05-17 15:26] LABS: Alanine Aminotransferase 47 U/L (6-35); Albumin Level 4.3 g/dL (3.5-5.1); Alkaline Phosphatase 179 U/L (38-126); Anion Gap 8 mmol/L (4-12); Aspartate Amino Transferase 58 U/L (14-36); Bilirubin,Total 0.6 mg/dL (0.2-1.3); Blood Urea Nitrogen 12 mg/dL (7-17); Calcium 9.4 mg/dL (8.4-10.2); Carbon Dioxide 31 mmol/L (22-30); Chloride 96 mmol/L (98-107); Estimated Glomerular Filt Rate > 60; Glucose 159 mg/dL (65-110); Potassium 4.5 mmol/L (3.4-5.0); Sodium 135 mmol/L (137-145); Total Protein 8.7 g/dL (6.3-8.2)
== END 2025-05-17 11:05 | disposition home or self-care (01) ==
LOC: ANHGOSHLAB 11:05
PROVIDERS: PCP Internal Medicine; Visit Provider Nurse Practitioner
DX: E11.9 Type 2 diabetes mellitus without complications (principal); Z79.4 Long term (current) use of insulin
CPT/HCPCS: 36415; 80053; 83036; 85025

== ENCOUNTER 2025-06-28 07:22 | Outpatient (CLI) | payer MEDICARE, MEDICAID, SELFPAY ==
--- NOTE | ~2025-06-28 | MR_ITS ---
EXAMINATION: MR knee LT wo con DATE: 06/28/2025 07:59 INDICATION: Left knee pain. TECHNIQUE: Magnetic resonance imaging (MRI) of the left knee was performed without intravenous contrast. Sequences included axial PD-weighted FS FSE, coronal PD-weighted FSE and PD-weighted FS FSE, sagittal PD-weighted FSE, and sagittal T2-weighted FS FSE. COMPARISON: None. FINDINGS: Medial compartment: Medial meniscus is normal. There is cartilage surface irregularity of tibial condyle and femoral condyle. There is mild subchondral edema-like marrow signal intensity of femoral condyle medially. Lateral compartment: Lateral meniscus is normal. Lateral compartment cartilage is normal. Patellofemoral compartment: There is cartilage surface irregularity of patella. There is shallow partial- thickness cartilage loss of trochlea. There are tiny osteophytes. Ligaments and tendons: The anterior and posterior cruciate ligaments are normal. There are changes of prior sprains of medial collateral ligament and lateral collateral ligament characterized by increased signal intensity proximally. There is mild patellar tendinopathy. Fluid: There is a small knee joint effusion. There is a small Lerner's cyst. IMPRESSION: 1. Mild chondrosis of medial and patellofemoral compartments. 2. Small knee joint effusion. 3. Small Lerner's cyst. Reviewed, dictated and finalized at location E.
--- NOTE | ~2025-06-28 | CT_ITS ---
EXAMINATION:CT lung screening DATE: 06/28/2025 08:07 INDICATION: Personal history of nicotine dependence. TECHNIQUE: Computed tomography (CT) of the chest was performed without intravenous contrast. Automated exposure control and iterative reconstruction technique were employed. The dose-length product (DLP) was 117.02 mGy-cm. COMPARISON: Chest CT 05/18/2024 FINDINGS: There is mild emphysema. There is mild scarring at the lung apices. Calcified pulmonary nodules and calcified left hilar lymph nodes are consistent with old granulomatous disease. There is a 2 mm nodule in left upper lobe. No pleural effusion. The heart size is normal. There are coronary artery calcifications. No pericardial effusion. The liver demonstrates surface nodularity, consistent with cirrhosis. Calcifications in the spleen are consistent with old granulomatous disease. There is severe cervical and thoracic spondylosis. There is mild chronic height loss of multiple vertebral bodies. IMPRESSION: 1. Lung-RADS category 2S: Benign appearance or behavior. Continue annual screening with noncontrast low-dose chest CT in 12 months. 2. Cirrhosis of the liver. Reviewed, dictated and finalized at location E. IMPRESSION: 1. Lung-RADS category 2S: Benign appearance or behavior. Continue annual screen ing with noncontrast low-dose chest CT in 12 months. 2. Cirrhosis of the liver.
== END 2025-06-28 07:23 | disposition home or self-care (01) ==
LOC: MICIMG 07:24
PROVIDERS: PCP Internal Medicine; Visit Provider Nurse Practitioner
DX: M25.462 Effusion, left knee (principal); Z87.891 Personal history of nicotine dependence; M71.22 Synovial cyst of popliteal space [Baker], left knee; K74.69 Other cirrhosis of liver
CPT/HCPCS: 71271; 73721